=== PATIENT | female | born 1935 | race Caucasian/White ===

== ENCOUNTER 2017-07-23 14:38 | Observation (INO) ==
[2017-07-23 15:15] LABS: Basophils % 0.5 % (0.0-0.8); Eosinophils # 0.1 10*3/uL (0.0-0.87); Eosinophils % 1.1 % (0.00-10.9); Hematocrit 38.6 VOL% (35.7-47.0); Hemoglobin 14.2 GM/DL (12.0-16.0); Immature Granulocytes % 0.5 %; Immature Granulocytes Absolute 0.04 #; Lymphocytes # 1.7 10*3/uL (1.4-4.0); Lymphocytes % 22.4 % (21.3-54.2); Mean Corpuscular HGB Conc 36.8 GM/DL (32-36); Mean Corpuscular Hemoglobin 34 PG (27-34); Mean Corpuscular Volume 91.9 FL (87-102); Mean Platelet Volume 9.1 FL (9.6-12.0); Monocytes # 0.8 10*3/uL (0.11-0.8); Monocytes % 10.2 % (1.7-12.7); Neutrophils % 65.3 % (38.7-73.9); Platelet Count 200 T/CUMM (130-400); Red Cell Distribution Width 11.6 % (9.3-17.3); White Blood Count 7.6 T/CUMM (4-12)
[2017-07-23 15:35] LABS: Alanine Aminotransferase 30 U/L (13-56); Albumin 4.3 G/DL (3.4-5.0); Alkaline Phosphatase 58 U/L (45-117); Aspartate Amino Transferase 35 U/L (0-37); Blood Urea Nitrogen 14 MG/DL (7-18); Calcium 9.5 MG/DL (8.5-10.1); Glucose 101 MG/DL (74-106); Magnesium 1.8 MG/DL (1.8-2.4); Osmolality,Calculated 253.4 MOS/KG (273-304); Potassium 3.3 MMOL/L (3.5-5.1); Sodium 126 MMOL/L (136-145); Total Protein 7.7 G/DL (6.4-8.3); Troponin I Only < 0.015 NG/ML (0.00-0.045)
[2017-07-23] MEDS ORDERED: SODIUM CHLORIDE 0.9% 500 ML IV STA (15:40)
[2017-07-23] MEDS ORDERED: LACTULOSE 20 GM/30 ML UDCUP PO PRN (16:56)
[2017-07-23] MEDS ORDERED: ONDANSETRON 4 MG/2 ML VIAL IV PRN (16:56)
[2017-07-23] MEDS ORDERED: DOCUSATE SODIUM 100 MG CAPSULE PO PRN (16:56)
[2017-07-23] MEDS ORDERED: SODIUM CHLORIDE 0.9% 1,000 ML IV SCH (17:00)
[2017-07-23] MEDS ORDERED: POTASSIUM CHLORIDE 20 MEQ TABLET PO PRN (17:06)
[2017-07-23] MEDS ORDERED: ACETAMINOPHEN 325 MG TABLET PO PRN (17:26)
[2017-07-23 17:57] LABS: Magnesium 1.7 MG/DL (1.8-2.4); Thyroid Stimulating Hormone 11.1 uIU/ml (0.358-3.74)
[2017-07-23] MEDS ORDERED: MAGNESIUM SULF RIDER 4 GM in PREMIX 1 EACH IV PRN (18:27)
[2017-07-23] MEDS ORDERED: MAGNESIUM SULF RIDER 2 GM in PREMIX 1 EACH IV PRN (18:27)
[2017-07-23] MEDS: POTASSIUM CHLORIDE INJ 40 MEQ in SODIUM CHLORIDE 0.9% 1,000 ML IV SCH (18:45)
[2017-07-23 19:10] LABS: Thyroid Stimulating Hormone 6.09 uIU/ml (0.358-3.74)
[2017-07-23] MEDS: PANTOPRAZOLE 40 MG TABLET PO SCH (20:31)
[2017-07-23] MEDS ORDERED: SIMVASTATIN 20 MG TABLET PO SCH (21:00)
[2017-07-23 23:48] LABS: Apearance,Urine Slightly Hazy (Clear); Bacteria,Urine Occasional /HPF (Few); Bilirubin,Urine Negative (Negative); Blood, Urine Negative (Negative); Glucose,Urine (UA) Negative (Negative); Hyaline Casts,Urine 11 /LPF (0-3); Ketones,Urine 5 mg/dL (Negative); Mucus,Urine Occasional /LPF (Occasional); Nitrite,Urine Negative (Negative); Protein,Urine 30 MG/DL; RBC,Urine 1 /HPF (0-4); Renal Epithelial Cells,Urine Occasional /HPF (<1); Squamous Epithelial Cell,Urine Occasional /HPF (0-10); Urine Color Yellow (Yellow); Urine Specific Gravity 1.015 (1.001-1.035); Urine Urobilinogen < 2.0 EU/DL (0.2-1.0); WBC,Urine 2 /HPF (0-6)
[2017-07-24 06:00] LABS: Basophils % 0.5 % (0.0-0.8); Eosinophils # 0.1 10*3/uL (0.0-0.87); Eosinophils % 2.2 % (0.00-10.9); Hematocrit 36.1 VOL% (35.7-47.0); Hemoglobin 13.1 GM/DL (12.0-16.0); Immature Granulocytes % 0.3 %; Immature Granulocytes Absolute 0.02 #; Lymphocytes # 1.9 10*3/uL (1.4-4.0); Mean Corpuscular HGB Conc 36.3 GM/DL (32-36); Mean Corpuscular Hemoglobin 34 PG (27-34); Mean Platelet Volume 9.1 FL (9.6-12.0); Monocytes # 0.7 10*3/uL (0.11-0.8); Monocytes % 11.8 % (1.7-12.7); Neutrophils # 3.3 10*3/uL (1.4-7.4); Neutrophils % 54.2 % (38.7-73.9); Platelet Count 170 T/CUMM (130-400); Red Blood Count 3.88 MC/CUMM (3.8-5.5); Red Cell Distribution Width 11.6 % (9.3-17.3)
[2017-07-24 06:50] LABS: Osmolality,Calculated 263.5 MOS/KG (273-304); Potassium 3.9 MMOL/L (3.5-5.1); Risk Ratio 2.77; VLDL CHOLESTEROL 12.4 MG/DL
[2017-07-24 08:10] VITALS: BP 138/79
[2017-07-24] MEDS ORDERED: LOSARTAN/HCTZ 50-12.5 MG TABLET PO SCH (09:00)
[2017-07-24] MEDS ORDERED: ASPIRIN EC 325 MG TABLET PO SCH (09:00)
[2017-07-24] MEDS ORDERED: PANTOPRAZOLE 40 MG TABLET PO SCH (09:00)
[2017-07-24] MEDS: PANTOPRAZOLE 40 MG TABLET PO SCH (09:29)
[2017-07-24] MEDS: POTASSIUM CHLORIDE INJ 40 MEQ in SODIUM CHLORIDE 0.9% 1,000 ML IV SCH (10:00)
[2017-07-24] MEDS ORDERED: SODIUM CHLOR 0.9% KCL 40 MEQ 40 MEQ/1,000 ML BAG IV SCH (15:10)
== END 2017-07-24 12:45 | disposition home or self-care (01) ==
LOC: EDBD → EDUNIT# → N.EDINP 14:38 → N.ED 14:38 → N.EDINP 16:57 → N.2E 17:22
PROVIDERS: ADMIT Internal Medicine; ATTEND Internal Medicine

== ENCOUNTER 2017-08-06 05:44 | Inpatient (IN) ==
[2017-08-06] MEDS ORDERED: diphenhydrAMINE CAP 25 MG CAPSULE ONE (09:21)
[2017-08-06] MEDS ORDERED: DIAZEPAM 5 MG TABLET ONE (09:21)
[2017-08-06] MEDS ORDERED: DIAZEPAM 5 MG TABLET PO ONE (09:24)
[2017-08-06] MEDS ORDERED: MAGNESIUM SULF RIDER 2 GM in PREMIX 1 EACH IV PRN (09:24)
[2017-08-06] MEDS ORDERED: POTASSIUM CHLORIDE RIDER 10 MEQ in PREMIX 1 EACH IV PRN (09:24)
[2017-08-06] MEDS ORDERED: diphenhydrAMINE CAP 25 MG CAPSULE PO ONE (09:24)
[2017-08-06] MEDS ORDERED: SODIUM CHLORIDE 0.45% 1,000 ML IV SCH (09:30)
[2017-08-06] MEDS ORDERED: LIDOCAINE 1% 20 ML VIAL ONE (10:00)
[2017-08-06] MEDS ORDERED: HEPARIN/NACL 0.9% 2 UNITS/ML 2,000 ML IV ONE (10:01)
[2017-08-06] MEDS ORDERED: MIDAZOLAM 2 MG/2 ML VIAL ONE (10:24)
[2017-08-06] MEDS ORDERED: fentaNYL 100 MCG/2 ML VIAL ONE (10:24)
[2017-08-06] MEDS ORDERED: ZALEPLON 5 MG CAPSULE PO PRN (11:01)
[2017-08-06] MEDS ORDERED: ONDANSETRON 4 MG/2 ML VIAL IV PRN (11:01)
[2017-08-06] MEDS ORDERED: MORPHINE 2 MG/1 ML SYRINGE IV PRN (11:01)
[2017-08-06] MEDS ORDERED: NITROGLYCERIN SL 0.4 MG TABLET SL PRN (11:01)
[2017-08-06] MEDS ORDERED: guaiFENesin/DM ER 600-30 MG TABLET PO PRN (18:31)
[2017-08-06] MEDS ORDERED: BISACODYL 5 MG TABLET PO PRN (18:31)
[2017-08-06] MEDS: ATORVASTATIN 40 MG TABLET PO SCH (21:51)
[2017-08-06] MEDS: METOPROLOL TARTRATE 25 MG TABLET PO SCH (21:51)
[2017-08-07 06:16] LABS: Basophils % 0.6 % (0.0-0.8); Eosinophils # 0.2 10*3/uL (0.0-0.87); Eosinophils % 4.3 % (0.00-10.9); Immature Granulocytes % 0.4 %; Immature Granulocytes Absolute 0.02 #; Lymphocytes # 1.2 10*3/uL (1.4-4.0); Lymphocytes % 22.8 % (21.3-54.2); Mean Corpuscular HGB Conc 35.1 GM/DL (32-36); Mean Corpuscular Hemoglobin 34 PG (27-34); Mean Corpuscular Volume 97.6 FL (87-102); Mean Platelet Volume 9.3 FL (9.6-12.0); Monocytes # 0.6 10*3/uL (0.11-0.8); Monocytes % 10.8 % (1.7-12.7); Neutrophils # 3.2 10*3/uL (1.4-7.4); Neutrophils % 61.1 % (38.7-73.9); Platelet Count 170 T/CUMM (130-400); Red Blood Count 3.79 MC/CUMM (3.8-5.5); Red Cell Distribution Width 12.7 % (9.3-17.3); White Blood Count 5.3 T/CUMM (4-12)
[2017-08-07] MEDS: LEVOTHYROXINE 25 MCG TABLET PO SCH (06:28)
[2017-08-07] MEDS ORDERED: DEXTROSE 50% 25 GM/50 ML VIAL IV PRN (06:29)
[2017-08-07] MEDS ORDERED: GLUCAGON 1 MG VIAL IM PRN (06:29)
[2017-08-07] MEDS ORDERED: SODIUM CHLORIDE 0.9% 1,000 ML IV SCH (06:30)
[2017-08-07 06:41] LABS: Calcium 9.1 MG/DL (8.5-10.1); Osmolality,Calculated 267.2 MOS/KG (273-304); Risk Ratio 2.85; VLDL CHOLESTEROL 22.2 MG/DL
[2017-08-07 08:10] LABS: Allen Test Positive; Pt O2 Delivery Device Room Air
[2017-08-07 08:11] LABS: ABG HCO3 25.3 MMOL/L (20-26); ABG Oxygen Saturation 97.7 % (95-100); ABG PCO2 36.4 MM HG (35-48); ABG PO2 92.6 MM HG (80-95); ABG TCO2 21.5 MMOL/L (23-27)
[2017-08-07 08:47] LABS: Albumin 3.6 G/DL (3.4-5.0); Bilirubin,Total 0.8 MG/DL (0.2-1.0); Calcium 9.1 MG/DL (8.5-10.1); Osmolality,Calculated 265.4 MOS/KG (273-304); Total Protein 6.4 G/DL (6.4-8.3)
[2017-08-07] MEDS: ASPIRIN EC 81 MG TABLET PO SCH (09:38)
[2017-08-07] MEDS: METOPROLOL TARTRATE 25 MG TABLET PO SCH ×2 (09:38→21:20)
[2017-08-07] MEDS: PANTOPRAZOLE 20 MG TABLET PO SCH (09:38)
[2017-08-07] MEDS ORDERED: hydrALAZINE 20 MG/1 ML VIAL IV PRN (17:46)
[2017-08-07] MEDS: CHLORHEXIDINE 0.12% ORAL RINSE 60 ML BOTTLE SWISH/SPIT SCH ×2 (19:24→21:22)
[2017-08-07] MEDS: LOSARTAN 25 MG TABLET PO SCH (19:24)
[2017-08-07] MEDS ORDERED: CLORAZEPATE 3.75 MG TABLET PO PRN (20:35)
[2017-08-07] MEDS: ATORVASTATIN 40 MG TABLET PO SCH (21:20)
[2017-08-08] MEDS: LEVOTHYROXINE 25 MCG TABLET PO SCH (06:01)
[2017-08-08 06:20] LABS: Basophils # 0.1 10*3/uL (0.0-0.2); Eosinophils # 0.3 10*3/uL (0.0-0.87); Hematocrit 38.7 VOL% (35.7-47.0); Hemoglobin 13.4 GM/DL (12.0-16.0); Immature Granulocytes % 0.2 %; Immature Granulocytes Absolute 0.01 #; Lymphocytes # 1.6 10*3/uL (1.4-4.0); Lymphocytes % 27.4 % (21.3-54.2); Mean Corpuscular HGB Conc 34.6 GM/DL (32-36); Mean Corpuscular Hemoglobin 34 PG (27-34); Mean Platelet Volume 9.2 FL (9.6-12.0); Monocytes # 0.6 10*3/uL (0.11-0.8); Monocytes % 9.9 % (1.7-12.7); Neutrophils # 3.3 10*3/uL (1.4-7.4); Neutrophils % 56.5 % (38.7-73.9); Platelet Count 183 T/CUMM (130-400); Red Blood Count 3.95 MC/CUMM (3.8-5.5); Red Cell Distribution Width 12.7 % (9.3-17.3); White Blood Count 5.8 T/CUMM (4-12)
[2017-08-08 06:50] LABS: Calcium 9.1 MG/DL (8.5-10.1); Osmolality,Calculated 266.2 MOS/KG (273-304); Potassium 3.5 MMOL/L (3.5-5.1)
[2017-08-08] MEDS: CHLORHEXIDINE 0.12% ORAL RINSE 60 ML BOTTLE SWISH/SPIT SCH ×2 (09:21→22:00)
[2017-08-08] MEDS: PANTOPRAZOLE 20 MG TABLET PO SCH (09:22)
[2017-08-08] MEDS: ASPIRIN EC 81 MG TABLET PO SCH (09:22)
[2017-08-08] MEDS: LOSARTAN 25 MG TABLET PO SCH (09:23)
[2017-08-08] MEDS: METOPROLOL TARTRATE 25 MG TABLET PO SCH ×2 (09:23→22:00)
[2017-08-08] MEDS: CHLORHEXIDINE 4% SOLN 118 ML BOTTLE TOP SCH ×2 (12:51→22:00)
[2017-08-08] MEDS: ATORVASTATIN 40 MG TABLET PO SCH (22:00)
[2017-08-09] MEDS: CHLORHEXIDINE 4% SOLN 118 ML BOTTLE TOP SCH (04:30)
[2017-08-09] MEDS ORDERED: PAPAVERINE 60 MG/2 ML VIAL ONE ×2 (05:23→10:34)
[2017-08-09] MEDS ORDERED: VANCOMYCIN 1,000 MG VIAL ONE ×2 (05:24→08:51)
[2017-08-09 06:02] LABS: Basophils % 0.5 % (0.0-0.8); Eosinophils # 0.2 10*3/uL (0.0-0.87); Hematocrit 35.5 VOL% (35.7-47.0); Hemoglobin 12.5 GM/DL (12.0-16.0); Immature Granulocytes % 0.3 %; Immature Granulocytes Absolute 0.02 #; Lymphocytes # 1.4 10*3/uL (1.4-4.0); Lymphocytes % 23.4 % (21.3-54.2); Mean Corpuscular HGB Conc 35.2 GM/DL (32-36); Mean Corpuscular Hemoglobin 35 PG (27-34); Mean Corpuscular Volume 98.6 FL (87-102); Mean Platelet Volume 9.4 FL (9.6-12.0); Monocytes # 0.6 10*3/uL (0.11-0.8); Monocytes % 9.7 % (1.7-12.7); Neutrophils # 3.6 10*3/uL (1.4-7.4); Neutrophils % 62.1 % (38.7-73.9); Platelet Count 161 T/CUMM (130-400); Red Cell Distribution Width 12.7 % (9.3-17.3); White Blood Count 5.8 T/CUMM (4-12)
[2017-08-09] MEDS ORDERED: LORazepam 1 MG TABLET PO ONE (06:02)
[2017-08-09] MEDS: METOPROLOL TARTRATE 25 MG TABLET PO SCH (06:17)
[2017-08-09] MEDS: LOSARTAN 25 MG TABLET PO SCH (06:17)
[2017-08-09] MEDS ORDERED: CEFUROXIME INJ 1,500 MG in SYRINGE 1 EACH IV ONE (06:29)
[2017-08-09 06:30] LABS: Calcium 9.1 MG/DL (8.5-10.1); Magnesium 1.6 MG/DL (1.8-2.4); Osmolality,Calculated 271.8 MOS/KG (273-304); Potassium 3.7 MMOL/L (3.5-5.1)
[2017-08-09 06:33] LABS: Calcium 9.1 MG/DL (8.5-10.1); Osmolality,Calculated 273.7 MOS/KG (273-304); Potassium 3.7 MMOL/L (3.5-5.1)
[2017-08-09 08:01] LABS: ABG Base Excess -2.2 MMOL/L (-2.5-2.5); ABG HCO3 20.8 MMOL/L (20-26); ABG Oxygen Saturation 99.3 % (95-100); ABG PCO2 30.2 MM HG (35-48); ABG PH 7.456 (7.35-7.45); ABG PO2 443.2 MM HG (80-95); ABG TCO2 21.7 MMOL/L (23-27); Glucose Heart Surgery 103 MG/DL (74-106); Hemoglobin Heart Surgery 11.2 G/DL (12.0-16.0); Ionized Calcium Arterial 1.11 MMOL/L (1.21-1.46); PCO2 Patient Temp Arterial 30.2 MMHG; PH Patient Temp Arterial 7.456; PO2 Patient Temp Arterial 443.2 MM HG; Patient Temperature 37 CELCIUS; Potassium Heart/CVR 2.8 MMOL/L (3.5-5.1); Sodium Heart/CVR 135 MMOL/L (135-145)
[2017-08-09 09:22] LABS: Apearance,Urine CLEAR (Clear); Bilirubin,Urine Negative (Negative); Blood, Urine Small mg/dL (Negative); Glucose,Urine (UA) Negative (Negative); Hyaline Casts,Urine 1 /LPF (0-3); Ketones,Urine Negative (Negative); Nitrite,Urine Negative (Negative); Protein,Urine Negative; RBC,Urine 1 /HPF (0-4); Squamous Epithelial Cell,Urine Occasional /HPF (0-10); Urine Color Yellow (Yellow); Urine Specific Gravity 1.009 (1.001-1.035); Urine Urobilinogen < 2.0 EU/DL (0.2-1.0)
[2017-08-09 09:49] LABS: PCO2 Patient Temp Venous 27.3 MM HG; PH Patient Temp Venous 7.486; PO2 Patient Temp Venous 40.7 MM HG; VBG Base Excess -2.2 MEQ/L (0-4); VBG HCO3 22.5 MEQ/L (24-28); VBG Oxygen Saturation 88.3 %; VBG PCO2 33.1 MMHG (41-51); VBG PH 7.427; VBG PO2 53.1 MMHG (17-40)
[2017-08-09 09:50] LABS: Hemoglobin Heart Surgery 5.6 G/DL (12.0-16.0)
[2017-08-09 09:51] LABS: Hematocrit Heart Surgery 17.7 PERCENT (37-47)
[2017-08-09 10:17] LABS: Hematocrit Heart Surgery 22.9 PERCENT (37-47); Hemoglobin Heart Surgery 7.3 G/DL (12.0-16.0); PCO2 Patient Temp Venous 25.6 MM HG; PH Patient Temp Venous 7.526; PO2 Patient Temp Venous 32.2 MM HG; Potassium Heart/CVR 3.6 MMOL/L (3.5-5.1); VBG Base Excess -0.9 MEQ/L (0-4); VBG HCO3 23.5 MEQ/L (24-28); VBG Oxygen Saturation 81.4 %; VBG PCO2 31.1 MMHG (41-51); VBG PH 7.466; VBG PO2 42.5 MMHG (17-40)
[2017-08-09 10:49] LABS: Hematocrit Heart Surgery 23.5 PERCENT (37-47); Hemoglobin Heart Surgery 7.5 G/DL (12.0-16.0); PCO2 Patient Temp Venous 28.4 MM HG; PH Patient Temp Venous 7.485; PO2 Patient Temp Venous 35.8 MM HG; Potassium Heart/CVR 3.8 MMOL/L (3.5-5.1); VBG Base Excess -1.4 MEQ/L (0-4); VBG HCO3 22.9 MEQ/L (24-28); VBG Oxygen Saturation 72.7 %; VBG PCO2 28.4 MMHG (41-51); VBG PH 7.485; VBG PO2 35.8 MMHG (17-40)
[2017-08-09 11:17] LABS: Hematocrit Heart Surgery 28.3 PERCENT (37-47); Hemoglobin Heart Surgery 9.1 G/DL (12.0-16.0); PCO2 Patient Temp Venous 30.3 MM HG; PH Patient Temp Venous 7.447; Potassium Heart/CVR 3.6 MMOL/L (3.5-5.1); VBG Base Excess -2.4 MEQ/L (0-4); VBG HCO3 22.1 MEQ/L (24-28); VBG Oxygen Saturation 77.4 %; VBG PCO2 30.3 MMHG (41-51); VBG PH 7.447
[2017-08-09] MEDS ORDERED: PHENYLEPHRINE DRIP 40 MG/250 ML PREMIX IV ONE (11:29)
[2017-08-09] MEDS ORDERED: POTASSIUM CHLORIDE RIDER 100 ML IV ONE (11:29)
[2017-08-09] MEDS ORDERED: THROMBIN TOPICAL (RECOMBINANT) 5,000 UNIT VIAL TOP ONE (11:37)
[2017-08-09] MEDS ORDERED: ALBUMIN 25% 25 GM/100 ML VIAL IV ONE (11:39)
[2017-08-09] MEDS ORDERED: MAGNESIUM SULFATE 1 GM/2 ML VIAL ONE (11:39)
[2017-08-09] MEDS ORDERED: SODIUM BICARBONATE 50 MEQ/50 ML SYRINGE IV ONE (11:39)
[2017-08-09] MEDS ORDERED: PROTAMINE SULFATE 250 MG/25 ML VIAL IV ONE (11:39)
[2017-08-09] MEDS ORDERED: MANNITOL 12.5 GM/50 ML VIAL IV ONE (11:40)
[2017-08-09] MEDS ORDERED: FUROSEMIDE 20 MG/2 ML VIAL ONE (11:40)
[2017-08-09] MEDS ORDERED: HEPARIN 10,000 UNIT/10 ML VIAL ONE (11:40)
[2017-08-09] MEDS ORDERED: methylPREDNISolone SOD SUC 1,000 MG/8 ML VIAL ONE (11:40)
[2017-08-09] MEDS ORDERED: ALBUMIN 5% 12.5 GM/250 ML VIAL IV ONE (11:40)
[2017-08-09] MEDS ORDERED: DEXTROSE 5% KCL 20 MEQ 20 MEQ/1,000 ML BAG IV ONE (11:41)
[2017-08-09 11:47] LABS: ABG Base Excess -3.6 MMOL/L (-2.5-2.5); ABG HCO3 21.4 MMOL/L (20-26); ABG PCO2 25.1 MM HG (35-48); ABG PH 7.482 (7.35-7.45); ABG TCO2 17.2 MMOL/L (23-27); Glucose Heart Surgery 198 MG/DL (74-106); Hematocrit Heart Surgery 28.9 PERCENT (37-47); Hemoglobin Heart Surgery 9.3 G/DL (12.0-16.0); Ionized Calcium Arterial 1.35 MMOL/L (1.21-1.46); PCO2 Patient Temp Arterial 25.1 MMHG; PH Patient Temp Arterial 7.482; Patient Temperature 37 CELCIUS; Sodium Heart/CVR 134 MMOL/L (135-145)
[2017-08-09] MEDS ORDERED: NITROGLYCERIN DRIP 50 MG/250 ML BOTTLE IV ONE ×2 (12:16→13:23)
[2017-08-09] MEDS ORDERED: PROTAMINE SULFATE 50 MG/5 ML VIAL IV ONE (12:36)
[2017-08-09] MEDS ORDERED: VECURONIUM 10 MG VIAL IV PRN ×2 (13:08)
[2017-08-09] MEDS ORDERED: ALBUMIN 5% 12.5 GM in PREMIX 1 EACH IV PRN (13:08)
[2017-08-09] MEDS ORDERED: LACTATED RINGERS 250 ML IV PRN (13:08)
[2017-08-09] MEDS ORDERED: PHENYLEPHRINE DRIP 40 MG/250 ML PREMIX IV PRN (13:08)
[2017-08-09] MEDS ORDERED: ACETAMINOPHEN 650 MG SUPP RECTAL PRN (13:08)
[2017-08-09] MEDS ORDERED: INSULIN REGULAR 100 UNIT/ML IV PRN (13:08)
[2017-08-09] MEDS ORDERED: MORPHINE 10 MG/1 ML VIAL IV PRN (13:08)
[2017-08-09] MEDS ORDERED: MAGNESIUM SULF RIDER 2 GM in PREMIX 1 EACH IV PRN (13:08)
[2017-08-09] MEDS ORDERED: INSULIN REGULAR 100 UNIT/ML IV ONE (13:08)
[2017-08-09] MEDS ORDERED: CALCIUM CHLORIDE 1,000 MG/10 ML SYRINGE IV PRN (13:08)
[2017-08-09] MEDS ORDERED: NITROPRUSSIDE 100 MG in DEXTROSE 5% 250 ML IV PRN (13:08)
[2017-08-09] MEDS ORDERED: MAGNESIUM SULF RIDER 4 GM in PREMIX 1 EACH IV PRN (13:08)
[2017-08-09] MEDS ORDERED: POTASSIUM CHLORIDE RIDER 10 MEQ in PREMIX 1 EACH IV PRN (13:08)
[2017-08-09] MEDS ORDERED: INSULIN REGULAR DRIP 100 ML IV SCH (13:08)
[2017-08-09] MEDS ORDERED: DEXTROSE 50% 25 GM/50 ML VIAL IV PRN ×2 (13:08)
[2017-08-09 13:18] LABS: ABG Base Excess -3.6 MMOL/L (-2.5-2.5); ABG HCO3 21.5 MMOL/L (20-26); ABG Oxygen Saturation 99.8 % (95-100); ABG PCO2 37.9 MM HG (35-48); ABG PH 7.361 (7.35-7.45); ABG TCO2 19.4 MMOL/L (23-27); Glucose Heart Surgery 151 MG/DL (74-106); Hematocrit Heart Surgery 32.5 PERCENT (37-47); Hemoglobin Heart Surgery 10.5 G/DL (12.0-16.0); Potassium Heart/CVR 3.2 MMOL/L (3.5-5.1)
[2017-08-09] MEDS ORDERED: SUFentanil 50 MCG/ML AMP ONE (13:21)
[2017-08-09] MEDS ORDERED: EPINEPHrine 1 MG/10 ML SYRINGE ONE (13:21)
[2017-08-09] MEDS ORDERED: SEVOFLURANE 1 UNIT/15 MINUTE INH ONE (13:21)
[2017-08-09] MEDS ORDERED: MINERAL OIL/PETROLATUM OPH OINT 3.5 GM TUBE ONE (13:22)
[2017-08-09] MEDS ORDERED: ePHEDrine 50 MG/ML AMP ONE (13:22)
[2017-08-09] MEDS ORDERED: SUFentanil 250 MCG/5 ML AMP ONE (13:22)
[2017-08-09] MEDS ORDERED: ETOMIDATE 40 MG/20 ML VIAL IV ONE (13:23)
[2017-08-09] MEDS ORDERED: PHENYLEPHRINE 50 MG/5 ML VIAL ONE (13:23)
[2017-08-09] MEDS ORDERED: AMINOCAPROIC ACID 5,000 MG/20 ML VIAL IV ONE (13:23)
[2017-08-09] MEDS ORDERED: SODIUM CHLORIDE 0.9% 250 ML IV ONE (13:24)
[2017-08-09] MEDS ORDERED: SODIUM CHLORIDE 0.9% 1,000 ML IV ONE (13:24)
[2017-08-09] MEDS: SODIUM CHLORIDE 0.45% 1,000 ML IV SCH ×2 (13:25)
[2017-08-09] MEDS ORDERED: CALCIUM CHLORIDE 1,000 MG/10 ML VIAL IV ONE (13:29)
[2017-08-09 13:39] LABS: CKMB % 10.1 %
[2017-08-09 13:42] LABS: Troponin I Only 7.95 NG/ML (0.00-0.045)
[2017-08-09 13:50] LABS: Albumin 3.1 G/DL (3.4-5.0); Bilirubin,Total 0.8 MG/DL (0.2-1.0); Calcium 8.6 MG/DL (8.5-10.1); Magnesium 1.9 MG/DL (1.8-2.4); Osmolality,Calculated 279.4 MOS/KG (273-304); Potassium 3.2 MMOL/L (3.5-5.1)
[2017-08-09] MEDS: NITROGLYCERIN DRIP 50 MG/250 ML BOTTLE IV SCH (13:50)
[2017-08-09] MEDS: LACTATED RINGERS 1,000 ML IV PRN ×3 (13:50→17:01)
[2017-08-09 13:51] LABS: Basophils % 0.3 % (0.0-0.8); Eosinophils # 0.1 10*3/uL (0.0-0.87); Eosinophils % 0.9 % (0.00-10.9); Hemoglobin 10.6 GM/DL (12.0-16.0); Immature Granulocytes % 0.9 %; Immature Granulocytes Absolute 0.07 #; Lymphocytes # 1.1 10*3/uL (1.4-4.0); Lymphocytes % 14.4 % (21.3-54.2); Mean Corpuscular HGB Conc 34.2 GM/DL (32-36); Mean Corpuscular Hemoglobin 33 PG (27-34); Mean Corpuscular Volume 96.6 FL (87-102); Mean Platelet Volume 9.7 FL (9.6-12.0); Monocytes # 0.5 10*3/uL (0.11-0.8); Monocytes % 6.3 % (1.7-12.7); Neutrophils # 5.8 10*3/uL (1.4-7.4); Neutrophils % 77.2 % (38.7-73.9); Platelet Count 90 T/CUMM (130-400); Red Blood Count 3.21 MC/CUMM (3.8-5.5); Red Cell Distribution Width 14.4 % (9.3-17.3); White Blood Count 7.6 T/CUMM (4-12)
[2017-08-09] MEDS: POTASSIUM CHLORIDE RIDER 20 MEQ in PREMIX 1 EACH IV PRN ×4 (13:51→20:58)
[2017-08-09 14:00] LABS: INR 1.5
[2017-08-09 15:06] LABS: ABG Base Excess -0.7 MMOL/L (-2.5-2.5); ABG HCO3 23.3 MMOL/L (20-26); ABG Oxygen Saturation 98.5 % (95-100); ABG PH 7.429 (7.35-7.45); ABG PO2 150.9 MM HG (80-95); ABG TCO2 24.4 MMOL/L (23-27); Glucose Heart Surgery 156 MG/DL (74-106); Hemoglobin Heart Surgery 11.6 G/DL (12.0-16.0); Potassium Heart/CVR 3.4 MMOL/L (3.5-5.1)
[2017-08-09] MEDS: KETOROLAC 15 MG/1 ML VIAL IV SCH ×2 (15:20→19:27)
[2017-08-09] MEDS ORDERED: NITROPRUSSIDE 50 MG/2 ML VIAL ONE (16:25)
[2017-08-09 17:23] LABS: ABG Base Excess -1.7 MMOL/L (-2.5-2.5); ABG Oxygen Saturation 99.1 % (95-100); ABG PCO2 36.9 MM HG (35-48); ABG PH 7.397 (7.35-7.45); ABG TCO2 20.6 MMOL/L (23-27); Glucose Heart Surgery 182 MG/DL (74-106); Hematocrit Heart Surgery 31.7 PERCENT (37-47); Hemoglobin Heart Surgery 10.3 G/DL (12.0-16.0); Potassium Heart/CVR 4.3 MMOL/L (3.5-5.1)
[2017-08-09] MEDS: MORPHINE 2 MG/1 ML SYRINGE IV PRN (18:44)
[2017-08-09 19:30] LABS: ABG HCO3 24.4 MMOL/L (20-26); ABG Oxygen Saturation 97.4 % (95-100); ABG PCO2 37.1 MM HG (35-48); ABG PH 7.421 (7.35-7.45); ABG PO2 88.3 MM HG (80-95); ABG TCO2 21.8 MMOL/L (23-27); Glucose Heart Surgery 188 MG/DL (74-106); Hematocrit Heart Surgery 32.8 PERCENT (37-47); Hemoglobin Heart Surgery 10.6 G/DL (12.0-16.0); Potassium Heart/CVR 3.6 MMOL/L (3.5-5.1)
[2017-08-09 19:51] LABS: CKMB % 9.7 %
[2017-08-09 19:52] LABS: Troponin I Only 4.98 NG/ML (0.00-0.045)
[2017-08-09] MEDS: CEFUROXIME INJ 1,500 MG in SYRINGE 1 EACH IV SCH (20:29)
[2017-08-09] MEDS: CHLORHEXIDINE 0.12% ORAL RINSE 60 ML BOTTLE SWISH/SPIT SCH (21:03)
[2017-08-09] MEDS: MIDAZOLAM 2 MG/2 ML VIAL IV PRN (23:59)
[2017-08-10 00:56] LABS: ABG Base Excess -1.3 MMOL/L (-2.5-2.5); ABG HCO3 21.9 MMOL/L (20-26); ABG Oxygen Saturation 96.7 % (95-100); ABG PCO2 31.3 MM HG (35-48); ABG PH 7.462 (7.35-7.45); ABG PO2 93.6 MM HG (80-95); ABG TCO2 22.8 MMOL/L (23-27); Glucose Heart Surgery 107 MG/DL (74-106); Hemoglobin Heart Surgery 10.2 G/DL (12.0-16.0); Potassium Heart/CVR 3.4 MMOL/L (3.5-5.1)
[2017-08-10] MEDS: POTASSIUM CHLORIDE RIDER 20 MEQ in PREMIX 1 EACH IV PRN ×5 (01:02→19:35)
[2017-08-10] MEDS: FUROSEMIDE 40 MG/4 ML VIAL IV PRN ×2 (01:38→15:01)
[2017-08-10] MEDS: MIDAZOLAM 2 MG/2 ML VIAL IV PRN ×2 (02:12→05:06)
[2017-08-10] MEDS: KETOROLAC 15 MG/1 ML VIAL IV SCH ×4 (02:16→22:23)
[2017-08-10] MEDS: MIDAZOLAM 10 MG/2 ML VIAL IV PRN ×2 (03:29→06:04)
[2017-08-10 03:58] LABS: ABG HCO3 22.2 MMOL/L (20-26); ABG Oxygen Saturation 96.6 % (95-100); ABG PCO2 25.1 MM HG (35-48); ABG PH 7.564 (7.35-7.45); ABG PO2 80.5 MM HG (80-95); ABG TCO2 22.9 MMOL/L (23-27); Glucose Heart Surgery 125 MG/DL (74-106); Hemoglobin Heart Surgery 10.9 G/DL (12.0-16.0); Potassium Heart/CVR 4.4 MMOL/L (3.5-5.1)
[2017-08-10 04:03] LABS: Hematocrit 28.8 VOL% (35.7-47.0); Hemoglobin 10.2 GM/DL (12.0-16.0); Immature Granulocytes % 0.5 %; Immature Granulocytes Absolute 0.04 #; Lymphocytes # 0.5 10*3/uL (1.4-4.0); Lymphocytes % 5.7 % (21.3-54.2); Mean Corpuscular HGB Conc 35.4 GM/DL (32-36); Mean Corpuscular Hemoglobin 33 PG (27-34); Mean Corpuscular Volume 94.1 FL (87-102); Mean Platelet Volume 10.2 FL (9.6-12.0); Monocytes # 0.4 10*3/uL (0.11-0.8); Monocytes % 4.9 % (1.7-12.7); Neutrophils % 88.9 % (38.7-73.9); Platelet Count 103 T/CUMM (130-400); Red Blood Count 3.06 MC/CUMM (3.8-5.5); Red Cell Distribution Width 14.6 % (9.3-17.3); White Blood Count 7.9 T/CUMM (4-12)
[2017-08-10 04:32] LABS: Albumin 3.4 G/DL (3.4-5.0); Bilirubin,Direct 0.19 MG/DL (0.0-0.20); Bilirubin,Total 0.6 MG/DL (0.2-1.0); Calcium 8.6 MG/DL (8.5-10.1); Magnesium 1.4 MG/DL (1.8-2.4); Osmolality,Calculated 278.4 MOS/KG (273-304); Potassium 4.4 MMOL/L (3.5-5.1); Total Protein 5.4 G/DL (6.4-8.3)
[2017-08-10 05:11] LABS: ABG Base Excess 0.8 MMOL/L (-2.5-2.5); ABG HCO3 25.1 MMOL/L (20-26); ABG Oxygen Saturation 98.1 % (95-100); ABG PCO2 31.4 MM HG (35-48); ABG PH 7.484 (7.35-7.45); ABG PO2 92.1 MM HG (80-95); ABG TCO2 21.2 MMOL/L (23-27); Glucose Heart Surgery 121 MG/DL (74-106); Hematocrit Heart Surgery 32.6 PERCENT (37-47); Hemoglobin Heart Surgery 10.6 G/DL (12.0-16.0)
[2017-08-10 05:43] LABS: ABG HCO3 25.3 MMOL/L (20-26); ABG PO2 89.1 MM HG (80-95); ABG TCO2 18.7 MMOL/L (23-27); Glucose Heart Surgery 115 MG/DL (74-106); Hematocrit Heart Surgery 31.1 PERCENT (37-47); Hemoglobin Heart Surgery 10.1 G/DL (12.0-16.0); Potassium Heart/CVR 3.9 MMOL/L (3.5-5.1)
[2017-08-10 05:55] LABS: ABG PH 7.634 (7.35-7.45)
[2017-08-10 05:56] LABS: ABG PCO2 19.5 MM HG (35-48)
[2017-08-10 06:14] LABS: CKMB % 12.9 %
[2017-08-10 06:18] LABS: Troponin I Only 3.9 NG/ML (0.00-0.045)
[2017-08-10 06:49] LABS: ABG HCO3 25.3 MMOL/L (20-26); ABG Oxygen Saturation 98.4 % (95-100); ABG PCO2 27.8 MM HG (35-48); ABG PH 7.525 (7.35-7.45); ABG PO2 89.6 MM HG (80-95); ABG TCO2 20.8 MMOL/L (23-27); Glucose Heart Surgery 117 MG/DL (74-106); Hematocrit Heart Surgery 30.7 PERCENT (37-47); Hemoglobin Heart Surgery 9.9 G/DL (12.0-16.0); Potassium Heart/CVR 3.5 MMOL/L (3.5-5.1)
[2017-08-10] MEDS: DEXMEDETOMIDINE 200 MCG in SODIUM CHLORIDE 0.9% 48 ML IV SCH (07:00)
[2017-08-10 08:47] LABS: ABG Base Excess 0.3 MMOL/L (-2.5-2.5); ABG HCO3 24.7 MMOL/L (20-26); ABG Oxygen Saturation 98.9 % (95-100); ABG PCO2 38.3 MM HG (35-48); ABG PH 7.416 (7.35-7.45); ABG TCO2 22.2 MMOL/L (23-27); Glucose Heart Surgery 116 MG/DL (74-106); Hematocrit Heart Surgery 32.3 PERCENT (37-47); Hemoglobin Heart Surgery 10.5 G/DL (12.0-16.0); Potassium Heart/CVR 5.1 MMOL/L (3.5-5.1)
[2017-08-10] MEDS ORDERED: ZALEPLON 5 MG CAPSULE PO PRN (08:55)
[2017-08-10] MEDS ORDERED: guaiFENesin/DM ER 600-30 MG TABLET PO PRN (08:55)
[2017-08-10] MEDS: CEFUROXIME INJ 1,500 MG in SYRINGE 1 EACH IV SCH ×2 (08:57→21:46)
[2017-08-10] MEDS: ASPIRIN EC 81 MG TABLET PO SCH (10:34)
[2017-08-10] MEDS: LOSARTAN 25 MG TABLET PO SCH (10:35)
[2017-08-10] MEDS: METOPROLOL TARTRATE 25 MG TABLET PO SCH ×2 (10:35→21:38)
[2017-08-10] MEDS: PANTOPRAZOLE 20 MG TABLET PO SCH (10:35)
[2017-08-10] MEDS: CHLORHEXIDINE 0.12% ORAL RINSE 60 ML BOTTLE SWISH/SPIT SCH ×2 (10:36→21:53)
[2017-08-10] MEDS: CLORAZEPATE 3.75 MG TABLET PO PRN ×2 (11:43→17:05)
[2017-08-10] MEDS ORDERED: INSULIN REGULAR 100 UNIT/ML SUBCUT SCH (12:00)
[2017-08-10] MEDS: SODIUM CHLORIDE 0.45% 1,000 ML IV SCH ×2 (12:29→12:30)
[2017-08-10 14:52] LABS: CKMB % 10.8 %
[2017-08-10 14:53] LABS: Troponin I Only 3.76 NG/ML (0.00-0.045)
[2017-08-10] MEDS: NITROGLYCERIN DRIP 50 MG/250 ML BOTTLE IV SCH (15:10)
[2017-08-10] MEDS: INSULIN REGULAR 100 UNIT/ML SUBCUT SCH ×2 (17:13→21:30)
[2017-08-10 18:14] LABS: Potassium 4.1 MMOL/L (3.5-5.1)
[2017-08-10] MEDS: ATORVASTATIN 40 MG TABLET PO SCH (21:39)
[2017-08-10] MEDS ORDERED: KETOROLAC 15 MG/1 ML VIAL IV SCH (22:30)
[2017-08-11] MEDS: INSULIN REGULAR 100 UNIT/ML SUBCUT SCH ×3 (01:04→11:03)
[2017-08-11 05:27] LABS: Albumin 3.2 G/DL (3.4-5.0); Bilirubin,Direct 0.24 MG/DL (0.0-0.20); Bilirubin,Total 1.1 MG/DL (0.2-1.0); Calcium 8.5 MG/DL (8.5-10.1); Magnesium 2.1 MG/DL (1.8-2.4); Osmolality,Calculated 271.1 MOS/KG (273-304); Potassium 4.9 MMOL/L (3.5-5.1); Total Protein 5.7 G/DL (6.4-8.3)
[2017-08-11] MEDS: MORPHINE 2 MG/1 ML SYRINGE IV PRN (05:35)
[2017-08-11 06:02] LABS: Basophils % 0.1 % (0.0-0.8); Hematocrit 30.8 VOL% (35.7-47.0); Hemoglobin 10.4 GM/DL (12.0-16.0); Immature Granulocytes % 0.8 %; Immature Granulocytes Absolute 0.12 #; Lymphocytes # 0.5 10*3/uL (1.4-4.0); Lymphocytes % 3.5 % (21.3-54.2); Mean Corpuscular HGB Conc 33.8 GM/DL (32-36); Mean Corpuscular Hemoglobin 33 PG (27-34); Mean Corpuscular Volume 98.4 FL (87-102); Mean Platelet Volume 11.2 FL (9.6-12.0); Monocytes # 0.9 10*3/uL (0.11-0.8); Monocytes % 6.4 % (1.7-12.7); Neutrophils # 12.7 10*3/uL (1.4-7.4); Neutrophils % 89.2 % (38.7-73.9); Platelet Count 131 T/CUMM (130-400); Red Blood Count 3.13 MC/CUMM (3.8-5.5); Red Cell Distribution Width 14.9 % (9.3-17.3); White Blood Count 14.3 T/CUMM (4-12)
[2017-08-11] MEDS: DEXMEDETOMIDINE 200 MCG in SODIUM CHLORIDE 0.9% 48 ML IV SCH (06:42)
[2017-08-11] MEDS: ONDANSETRON 4 MG/2 ML VIAL IV PRN ×2 (06:46→11:02)
[2017-08-11] MEDS: LEVOTHYROXINE 25 MCG TABLET PO SCH (06:49)
[2017-08-11] MEDS ORDERED: PHENAZOPYRIDINE 95 MG TABLET PO SCH (08:00)
[2017-08-11 08:03] LABS: Band Neutrophils 5 % (0-10); Hypochromasia 1+; Lymphocytes 4 % (20-55); Microcytosis 1+; Platelet Estimate Adequate; Segmented Neutrophils 89 % (50-85); Total Cells Counted 100
[2017-08-11] MEDS: CLORAZEPATE 3.75 MG TABLET PO PRN ×2 (11:01→22:25)
[2017-08-11] MEDS: PANTOPRAZOLE 20 MG TABLET PO SCH (11:02)
[2017-08-11] MEDS: ASPIRIN EC 81 MG TABLET PO SCH (11:02)
[2017-08-11] MEDS: LOSARTAN 25 MG TABLET PO SCH (11:02)
[2017-08-11] MEDS: METOPROLOL TARTRATE 25 MG TABLET PO SCH ×2 (11:02→21:41)
[2017-08-11] MEDS: CHLORHEXIDINE 0.12% ORAL RINSE 60 ML BOTTLE SWISH/SPIT SCH ×3 (11:03→21:45)
[2017-08-11] MEDS ORDERED: MAGNESIUM SULF RIDER 4 GM in PREMIX 1 EACH IV PRN (12:11)
[2017-08-11] MEDS ORDERED: ACETAMINOPHEN 325 MG TABLET PO PRN (12:11)
[2017-08-11] MEDS ORDERED: MAGNESIUM SULF RIDER 2 GM in PREMIX 1 EACH IV PRN (12:11)
[2017-08-11] MEDS ORDERED: ONDANSETRON 4 MG/2 ML VIAL IV PRN (12:11)
[2017-08-11] MEDS ORDERED: SODIUM CHLOR 0.45% KCL 20 MEQ 20 MEQ/1,000 ML BAG IV SCH (12:11)
[2017-08-11] MEDS ORDERED: ZALEPLON 5 MG CAPSULE PO PRN (12:11)
[2017-08-11] MEDS ORDERED: POTASSIUM CHLORIDE 20 MEQ TABLET PO PRN (12:11)
[2017-08-11] MEDS ORDERED: MAGNESIUM HYDROXIDE SUSP 30 ML UDCUP PO PRN (12:11)
[2017-08-11] MEDS ORDERED: DEXTROSE 50% 25 GM/50 ML VIAL IV PRN ×2 (12:11)
[2017-08-11] MEDS ORDERED: oxyCODONE/ACETAMINOPHEN 5-325 MG TABLET PO PRN (12:11)
[2017-08-11] MEDS ORDERED: ALUMINUM/MAGNES/SIMETH MAX STR 30 ML UDCUP PO PRN (12:11)
[2017-08-11] MEDS ORDERED: KETOROLAC 15 MG/1 ML VIAL IV PRN (12:11)
[2017-08-11] MEDS ORDERED: GLUCAGON 1 MG VIAL IM PRN ×2 (12:11)
[2017-08-11] MEDS ORDERED: DOCUSATE SODIUM 100 MG CAPSULE PO SCH (12:11)
[2017-08-11] MEDS: FERROUS SULFATE 325 MG TABLET PO SCH (15:16)
[2017-08-11] MEDS: PHENAZOPYRIDINE 95 MG TABLET PO SCH ×2 (15:17→17:06)
[2017-08-11] MEDS ORDERED: HALOPERIDOL 5 MG/ML AMP IM PRN (21:23)
[2017-08-11] MEDS: ATORVASTATIN 40 MG TABLET PO SCH (21:41)
[2017-08-11] MEDS: DOCUSATE SODIUM 100 MG CAPSULE PO SCH (21:41)
[2017-08-11] MEDS ORDERED: HALOPERIDOL 5 MG/ML AMP IM ONE (22:42)
[2017-08-12 05:44] LABS: Basophils % 0.1 % (0.0-0.8); Hemoglobin 9.6 GM/DL (12.0-16.0); Immature Granulocytes Absolute 0.11 #; Lymphocytes # 0.9 10*3/uL (1.4-4.0); Lymphocytes % 7.8 % (21.3-54.2); Mean Corpuscular HGB Conc 34.3 GM/DL (32-36); Mean Corpuscular Hemoglobin 33 PG (27-34); Mean Corpuscular Volume 97.6 FL (87-102); Mean Platelet Volume 10.6 FL (9.6-12.0); Monocytes # 1.1 10*3/uL (0.11-0.8); Monocytes % 10.4 % (1.7-12.7); Neutrophils # 8.9 10*3/uL (1.4-7.4); Neutrophils % 80.7 % (38.7-73.9); Platelet Count 125 T/CUMM (130-400); Red Blood Count 2.87 MC/CUMM (3.8-5.5)
[2017-08-12] MEDS ORDERED: FUROSEMIDE 40 MG/4 ML VIAL IV ONE (06:00)
[2017-08-12] MEDS: LEVOTHYROXINE 25 MCG TABLET PO SCH (06:42)
[2017-08-12 07:06] LABS: Albumin 3.3 G/DL (3.4-5.0); Bilirubin,Direct 0.27 MG/DL (0.0-0.20); Bilirubin,Indirect 0.5 MG/DL (0.0-1.0); Bilirubin,Total 0.8 MG/DL (0.2-1.0); CKMB % 2.3 %; Calcium 8.7 MG/DL (8.5-10.1); Magnesium 1.8 MG/DL (1.8-2.4); Osmolality,Calculated 268.4 MOS/KG (273-304); Potassium 4.1 MMOL/L (3.5-5.1); Total Protein 5.6 G/DL (6.4-8.3)
[2017-08-12 07:08] LABS: Troponin I Only 2.14 NG/ML (0.00-0.045)
[2017-08-12] MEDS: PHENAZOPYRIDINE 95 MG TABLET PO SCH ×2 (08:19→18:38)
[2017-08-12] MEDS: DOCUSATE SODIUM 100 MG CAPSULE PO SCH (08:19)
[2017-08-12] MEDS: FERROUS SULFATE 325 MG TABLET PO SCH (08:19)
[2017-08-12] MEDS: LOSARTAN 25 MG TABLET PO SCH (08:22)
[2017-08-12] MEDS: METOPROLOL TARTRATE 25 MG TABLET PO SCH (08:22)
[2017-08-12] MEDS: CHLORHEXIDINE 0.12% ORAL RINSE 60 ML BOTTLE SWISH/SPIT SCH (08:22)
[2017-08-12] MEDS: ASPIRIN EC 81 MG TABLET PO SCH (08:22)
[2017-08-12] MEDS: PANTOPRAZOLE 20 MG TABLET PO SCH (08:22)
[2017-08-12] MEDS ORDERED: METOPROLOL TARTRATE 25 MG TABLET PO ONE (10:20)
[2017-08-12] MEDS: ATORVASTATIN 40 MG TABLET PO SCH ×2 (21:25→21:26)
[2017-08-13] MEDS: METOPROLOL TARTRATE 25 MG TABLET PO SCH ×2 (00:04→11:03)
[2017-08-13] MEDS: METOPROLOL TARTRATE 50 MG TABLET PO SCH ×2 (00:05→11:02)
[2017-08-13] MEDS: CHLORHEXIDINE 0.12% ORAL RINSE 60 ML BOTTLE SWISH/SPIT SCH ×2 (00:06→11:04)
[2017-08-13 04:47] LABS: Basophils % 0.1 % (0.0-0.8); Eosinophils # 0.1 10*3/uL (0.0-0.87); Eosinophils % 0.7 % (0.00-10.9); Hematocrit 31.6 VOL% (35.7-47.0); Hemoglobin 10.9 GM/DL (12.0-16.0); Immature Granulocytes % 1.2 %; Immature Granulocytes Absolute 0.12 #; Lymphocytes # 1.4 10*3/uL (1.4-4.0); Lymphocytes % 13.2 % (21.3-54.2); Mean Corpuscular HGB Conc 34.5 GM/DL (32-36); Mean Corpuscular Hemoglobin 33 PG (27-34); Mean Platelet Volume 10.5 FL (9.6-12.0); Monocytes # 1.3 10*3/uL (0.11-0.8); Neutrophils # 7.4 10*3/uL (1.4-7.4); Neutrophils % 71.8 % (38.7-73.9); Platelet Count 174 T/CUMM (130-400); Red Blood Count 3.29 MC/CUMM (3.8-5.5); Red Cell Distribution Width 13.8 % (9.3-17.3); White Blood Count 10.2 T/CUMM (4-12)
[2017-08-13 05:28] LABS: Alanine Aminotransferase 41 U/L (13-56); Albumin 3.2 G/DL (3.4-5.0); Alkaline Phosphatase 55 U/L (45-117); Aspartate Amino Transferase 46 U/L (0-37); Bilirubin,Indirect 0.7 MG/DL (0.0-1.0); Blood Urea Nitrogen 19 MG/DL (7-18); Calcium 8.4 MG/DL (8.5-10.1); Glucose 104 MG/DL (74-106); Potassium 3.7 MMOL/L (3.5-5.1); Sodium 136 MMOL/L (136-145); Total Protein 5.7 G/DL (6.4-8.3)
[2017-08-13] MEDS: LEVOTHYROXINE 25 MCG TABLET PO SCH (06:25)
[2017-08-13] MEDS ORDERED: AMIODARONE 200 MG TABLET PO SCH (11:00)
[2017-08-13] MEDS: PANTOPRAZOLE 20 MG TABLET PO SCH (11:02)
[2017-08-13] MEDS: DOCUSATE SODIUM 100 MG CAPSULE PO SCH (11:02)
[2017-08-13] MEDS: FERROUS SULFATE 325 MG TABLET PO SCH (11:02)
[2017-08-13] MEDS: LOSARTAN 25 MG TABLET PO SCH (11:02)
[2017-08-13] MEDS: ASPIRIN EC 81 MG TABLET PO SCH (11:03)
[2017-08-13] MEDS ORDERED: SODIUM CHLORIDE 0.9% 1,000 ML IV SCH (14:00)
[2017-08-13 14:01] LABS: Apearance,Urine Slightly Hazy (Clear); Bacteria,Urine Occasional /HPF (Few); Bilirubin,Urine Negative (Negative); Blood, Urine Negative (Negative); Glucose,Urine (UA) Negative (Negative); Hyaline Casts,Urine 29 /LPF (0-3); Ketones,Urine Negative (Negative); Mucus,Urine Occasional /LPF (Occasional); Nitrite,Urine Positive (Negative); Protein,Urine 30 MG/DL; RBC,Urine 7 /HPF (0-4); Squamous Epithelial Cell,Urine Occasional /HPF (0-10); Urine Color Amber (Yellow); Urine Specific Gravity 1.015 (1.001-1.035); WBC,Urine 3 /HPF (0-6)
[2017-08-13] MEDS ORDERED: AMIODARONE INJ 450 MG in DEXTROSE 5% 241 ML IV SCH (14:30)
[2017-08-13] MEDS ORDERED: METOPROLOL SUCCINATE XL 50 MG TABLET PO SCH (14:30)
[2017-08-13] MEDS: ENOXAPARIN 60 MG/0.6 ML SYRINGE SUBCUT SCH (15:31)
[2017-08-13] MEDS: SODIUM CHLORIDE 0.45% 1,000 ML IV SCH (15:41)
[2017-08-13 16:41] LABS: Basophils % 0.1 % (0.0-0.8); Eosinophils % 0.3 % (0.00-10.9); Hematocrit 30.4 VOL% (35.7-47.0); Hemoglobin 10.4 GM/DL (12.0-16.0); Immature Granulocytes % 1.3 %; Immature Granulocytes Absolute 0.14 #; Lymphocytes # 1.2 10*3/uL (1.4-4.0); Mean Corpuscular HGB Conc 34.2 GM/DL (32-36); Mean Corpuscular Hemoglobin 33 PG (27-34); Mean Corpuscular Volume 95.6 FL (87-102); Mean Platelet Volume 9.8 FL (9.6-12.0); Monocytes # 1.6 10*3/uL (0.11-0.8); Neutrophils # 8.1 10*3/uL (1.4-7.4); Neutrophils % 73.3 % (38.7-73.9); Platelet Count 189 T/CUMM (130-400); Red Blood Count 3.18 MC/CUMM (3.8-5.5); Red Cell Distribution Width 13.8 % (9.3-17.3); White Blood Count 11.1 T/CUMM (4-12)
[2017-08-13 16:49] LABS: INR 1.1; PT Patient Result 11.2 SECS; Partial Thromboplastin Time 34.7 SECS (0-40)
[2017-08-13 17:04] LABS: Bilirubin,Total 0.8 MG/DL (0.2-1.0); Calcium 8.2 MG/DL (8.5-10.1); Potassium 3.4 MMOL/L (3.5-5.1); Total Protein 5.6 G/DL (6.4-8.3)
[2017-08-13] MEDS: PHENAZOPYRIDINE 95 MG TABLET PO SCH (18:23)
[2017-08-14] MEDS: AMIODARONE INJ 450 MG in DEXTROSE 5% 241 ML IV SCH ×2 (01:37→17:29)
[2017-08-14] MEDS: ENOXAPARIN 60 MG/0.6 ML SYRINGE SUBCUT SCH ×2 (02:25→14:26)
[2017-08-14] MEDS: SODIUM CHLORIDE 0.45% 1,000 ML IV SCH ×2 (04:15→17:31)
[2017-08-14 05:14] LABS: Basophils % 0.2 % (0.0-0.8); Eosinophils # 0.1 10*3/uL (0.0-0.87); Eosinophils % 1.2 % (0.00-10.9); Hematocrit 29.6 VOL% (35.7-47.0); Hemoglobin 10.2 GM/DL (12.0-16.0); Immature Granulocytes % 1.3 %; Immature Granulocytes Absolute 0.12 #; Lymphocytes # 1.5 10*3/uL (1.4-4.0); Lymphocytes % 16.5 % (21.3-54.2); Mean Corpuscular HGB Conc 34.5 GM/DL (32-36); Mean Corpuscular Hemoglobin 33 PG (27-34); Mean Corpuscular Volume 96.1 FL (87-102); Mean Platelet Volume 9.7 FL (9.6-12.0); Monocytes # 1.3 10*3/uL (0.11-0.8); Monocytes % 14.5 % (1.7-12.7); Neutrophils % 66.3 % (38.7-73.9); Platelet Count 187 T/CUMM (130-400); Red Blood Count 3.08 MC/CUMM (3.8-5.5); Red Cell Distribution Width 13.6 % (9.3-17.3); White Blood Count 9.1 T/CUMM (4-12)
[2017-08-14 05:52] LABS: Magnesium 1.9 MG/DL (1.8-2.4); Osmolality,Calculated 269.2 MOS/KG (273-304); Potassium 3.3 MMOL/L (3.5-5.1)
[2017-08-14 05:56] LABS: Albumin 2.7 G/DL (3.4-5.0); Bilirubin,Total 1.6 MG/DL (0.2-1.0); Calcium 7.9 MG/DL (8.5-10.1); Osmolality,Calculated 268.2 MOS/KG (273-304); Potassium 3.3 MMOL/L (3.5-5.1); Total Protein 5.2 G/DL (6.4-8.3)
[2017-08-14] MEDS ORDERED: guaiFENesin/DM ER 600-30 MG TABLET PO PRN (11:19)
[2017-08-14] MEDS ORDERED: CLORAZEPATE 3.75 MG TABLET PO PRN (11:19)
[2017-08-14] MEDS ORDERED: ZALEPLON 5 MG CAPSULE PO PRN (11:19)
[2017-08-14] MEDS ORDERED: MAGNESIUM HYDROXIDE SUSP 30 ML UDCUP PO PRN (14:11)
[2017-08-14] MEDS ORDERED: METOPROLOL TARTRATE 25 MG TABLET PO SCH (21:00)
[2017-08-14] MEDS: METOPROLOL SUCCINATE XL 50 MG TABLET PO SCH (22:04)
[2017-08-14] MEDS: ATORVASTATIN 40 MG TABLET PO SCH (22:05)
[2017-08-14] MEDS: AMIODARONE 200 MG TABLET PO SCH (22:06)
[2017-08-14] MEDS: POTASSIUM CHLORIDE 20 MEQ TABLET PO PRN (22:10)
[2017-08-14] MEDS: APIXABAN 2.5 MG TABLET PO SCH (22:10)
[2017-08-15] MEDS: POTASSIUM CHLORIDE 20 MEQ TABLET PO PRN ×2 (00:18→02:49)
[2017-08-15 05:37] LABS: Basophils % 0.2 % (0.0-0.8); Eosinophils # 0.2 10*3/uL (0.0-0.87); Eosinophils % 1.5 % (0.00-10.9); Hematocrit 29.9 VOL% (35.7-47.0); Hemoglobin 10.4 GM/DL (12.0-16.0); Immature Granulocytes % 2.1 %; Immature Granulocytes Absolute 0.24 #; Lymphocytes # 1.8 10*3/uL (1.4-4.0); Lymphocytes % 15.4 % (21.3-54.2); Mean Corpuscular HGB Conc 34.8 GM/DL (32-36); Mean Corpuscular Hemoglobin 33 PG (27-34); Mean Corpuscular Volume 95.2 FL (87-102); Mean Platelet Volume 9.8 FL (9.6-12.0); Monocytes # 1.6 10*3/uL (0.11-0.8); Neutrophils # 7.6 10*3/uL (1.4-7.4); Neutrophils % 66.8 % (38.7-73.9); Platelet Count 242 T/CUMM (130-400); Red Blood Count 3.14 MC/CUMM (3.8-5.5); Red Cell Distribution Width 13.7 % (9.3-17.3); White Blood Count 11.4 T/CUMM (4-12)
[2017-08-15 06:09] LABS: Calcium 8.3 MG/DL (8.5-10.1); Magnesium 2.1 MG/DL (1.8-2.4); Osmolality,Calculated 262.7 MOS/KG (273-304); Potassium 4.6 MMOL/L (3.5-5.1)
[2017-08-15 06:17] LABS: Alanine Aminotransferase 55 U/L (13-56); Albumin 2.6 G/DL (3.4-5.0); Alkaline Phosphatase 57 U/L (45-117); Aspartate Amino Transferase 51 U/L (0-37); Bilirubin,Indirect 1.2 MG/DL (0.0-1.0); Blood Urea Nitrogen 12 MG/DL (7-18); Calcium 8.2 MG/DL (8.5-10.1); Glucose 108 MG/DL (74-106); Osmolality,Calculated 262.7 MOS/KG (273-304); Potassium 4.5 MMOL/L (3.5-5.1); Sodium 131 MMOL/L (136-145); Total Protein 5.2 G/DL (6.4-8.3)
[2017-08-15 06:18] LABS: Troponin I Only 0.675 NG/ML (0.00-0.045)
[2017-08-15] MEDS: LEVOTHYROXINE 25 MCG TABLET PO SCH (06:51)
[2017-08-15] MEDS: PANTOPRAZOLE 20 MG TABLET PO SCH (09:00)
[2017-08-15] MEDS: FERROUS SULFATE 325 MG TABLET PO SCH (09:00)
[2017-08-15] MEDS: ASPIRIN EC 81 MG TABLET PO SCH (09:00)
[2017-08-15] MEDS: LOSARTAN 25 MG TABLET PO SCH (09:00)
[2017-08-15] MEDS: APIXABAN 2.5 MG TABLET PO SCH ×2 (09:00→22:15)
[2017-08-15] MEDS: AMIODARONE 200 MG TABLET PO SCH ×2 (09:00→22:14)
[2017-08-15] MEDS: DOCUSATE SODIUM 100 MG CAPSULE PO SCH (09:00)
[2017-08-15] MEDS: METOPROLOL SUCCINATE XL 50 MG TABLET PO SCH ×2 (09:00→22:15)
[2017-08-15] MEDS: ATORVASTATIN 40 MG TABLET PO SCH (22:15)
[2017-08-16 04:46] LABS: Basophils % 0.3 % (0.0-0.8); Eosinophils # 0.3 10*3/uL (0.0-0.87); Eosinophils % 2.3 % (0.00-10.9); Hematocrit 36.8 VOL% (35.7-47.0); Immature Granulocytes Absolute 0.28 #; Lymphocytes # 2.4 10*3/uL (1.4-4.0); Lymphocytes % 17.7 % (21.3-54.2); Mean Corpuscular HGB Conc 34.2 GM/DL (32-36); Mean Corpuscular Hemoglobin 33 PG (27-34); Mean Corpuscular Volume 96.3 FL (87-102); Mean Platelet Volume 9.4 FL (9.6-12.0); Monocytes # 1.3 10*3/uL (0.11-0.8); Monocytes % 9.8 % (1.7-12.7); Neutrophils # 9.3 10*3/uL (1.4-7.4); Neutrophils % 67.9 % (38.7-73.9); Platelet Count 323 T/CUMM (130-400); Red Cell Distribution Width 13.8 % (9.3-17.3); White Blood Count 13.7 T/CUMM (4-12)
[2017-08-16 05:21] LABS: Red Blood Count 3.82 MC/CUMM (3.8-5.5)
[2017-08-16 05:22] LABS: Hemoglobin 12.6 GM/DL (12.0-16.0)
[2017-08-16 05:28] LABS: Alanine Aminotransferase 56 U/L (13-56); Albumin 3.2 G/DL (3.4-5.0); Alkaline Phosphatase 67 U/L (45-117); Aspartate Amino Transferase 43 U/L (0-37); Blood Urea Nitrogen 11 MG/DL (7-18); Calcium 9.2 MG/DL (8.5-10.1); Glucose 102 MG/DL (74-106); Magnesium 2.1 MG/DL (1.8-2.4); Osmolality,Calculated 264.4 MOS/KG (273-304); Potassium 4.1 MMOL/L (3.5-5.1); Sodium 133 MMOL/L (136-145); Total Protein 6.4 G/DL (6.4-8.3)
[2017-08-16 05:38] LABS: Troponin I Only 0.517 NG/ML (0.00-0.045)
[2017-08-16] MEDS: LEVOTHYROXINE 25 MCG TABLET PO SCH (06:03)
[2017-08-16] MEDS: LOSARTAN 25 MG TABLET PO SCH (11:02)
[2017-08-16] MEDS: METOPROLOL SUCCINATE XL 50 MG TABLET PO SCH ×2 (11:02→21:03)
[2017-08-16] MEDS: AMIODARONE 200 MG TABLET PO SCH ×2 (11:03→21:03)
[2017-08-16] MEDS: PANTOPRAZOLE 20 MG TABLET PO SCH (11:03)
[2017-08-16] MEDS: APIXABAN 2.5 MG TABLET PO SCH ×2 (11:03→21:03)
[2017-08-16] MEDS: FERROUS SULFATE 325 MG TABLET PO SCH (11:03)
[2017-08-16] MEDS: ASPIRIN EC 81 MG TABLET PO SCH (11:04)
[2017-08-16] MEDS: DOCUSATE SODIUM 100 MG CAPSULE PO SCH ×2 (11:04→11:05)
[2017-08-16] MEDS: ATORVASTATIN 40 MG TABLET PO SCH (21:03)
[2017-08-17] MEDS: LEVOTHYROXINE 25 MCG TABLET PO SCH (06:30)
[2017-08-17] MEDS: PANTOPRAZOLE 20 MG TABLET PO SCH (09:43)
[2017-08-17] MEDS: METOPROLOL SUCCINATE XL 50 MG TABLET PO SCH (09:43)
[2017-08-17] MEDS: AMIODARONE 200 MG TABLET PO SCH (09:43)
[2017-08-17] MEDS: APIXABAN 2.5 MG TABLET PO SCH (09:44)
[2017-08-17] MEDS: ASPIRIN EC 81 MG TABLET PO SCH (09:44)
[2017-08-17] MEDS: LOSARTAN 25 MG TABLET PO SCH (09:44)
[2017-08-17] MEDS: FERROUS SULFATE 325 MG TABLET PO SCH (09:45)
[2017-08-17] MEDS: DOCUSATE SODIUM 100 MG CAPSULE PO SCH (09:45)
[2017-08-17 14:21] VITALS: BP 179/74
== END 2017-08-17 10:09 | disposition home health service (06) | DRG 234 ==
LOC: N.CL 05:44 → SUPCPDRO 11:01 → N.TELES 11:01 → N.CVR 08-09 12:28 → N.ICU 08-10 10:10 → N.TELES 08-12 10:31 → N.CVR 08-13 13:36 → N.ICU 08-13 17:12 → N.TELES 08-15 15:34
PROVIDERS: ADMIT Internal Medicine Cardiovascular Disease; ATTEND Internal Medicine Cardiovascular Disease

== ENCOUNTER 2018-05-09 07:58 | Inpatient (IN) ==
[2018-05-09 10:05] LABS: Basophils % 0.2 % (0.0-0.8); Hematocrit 39.7 VOL% (35.7-47.0); Hemoglobin 13.6 GM/DL (12.0-16.0); Immature Granulocytes % 0.7 %; Immature Granulocytes Absolute 0.07 #; Lymphocytes # 0.3 10*3/uL (1.4-4.0); Mean Corpuscular HGB Conc 34.3 GM/DL (32-36); Mean Corpuscular Hemoglobin 38 PG (27-34); Mean Corpuscular Volume 109.7 FL (87-102); Mean Platelet Volume 8.9 FL (9.6-12.0); Monocytes # 0.5 10*3/uL (0.11-0.8); Neutrophils # 8.7 10*3/uL (1.4-7.4); Neutrophils % 91.1 % (38.7-73.9); Platelet Count 134 T/CUMM (130-400); Red Blood Count 3.62 MC/CUMM (3.8-5.5); White Blood Count 9.5 T/CUMM (4-12)
[2018-05-09 10:22] LABS: Apearance,Urine Slightly Hazy (Clear); Bilirubin,Urine Negative (Negative); Blood, Urine Small mg/dL (Negative); Glucose,Urine (UA) Negative (Negative); Granular Casts,Urine 2 /LPF (0-1); Hyaline Casts,Urine 4 /LPF (0-3); Ketones,Urine 5 mg/dL (Negative); Nitrite,Urine Negative (Negative); Protein,Urine 100 MG/DL; RBC,Urine 3 /HPF (0-4); Squamous Epithelial Cell,Urine Occasional /HPF (0-10); Urine Color Yellow (Yellow); Urine Specific Gravity 1.014 (1.001-1.035); Urine Urobilinogen < 2.0 EU/DL (0.2-1.0); WBC,Urine 8 /HPF (0-6)
[2018-05-09 10:30] LABS: Lactic Acid 3.1 MMOL/L (0.4-2.0)
[2018-05-09 10:43] LABS: Albumin 3.5 G/DL (3.4-5.0); Calcium 8.8 MG/DL (8.5-10.1); Osmolality,Calculated 263.5 MOS/KG (273-304); Potassium 3.5 MMOL/L (3.5-5.1); Total Protein 6.8 G/DL (6.4-8.3)
[2018-05-09 10:49] LABS: Barbiturates Screen,Urine Negative (Negative); Benzodiazepines Screen,Urine Negative (Negative); Cannabinoid Screen,Urine Negative (Negative); Opiate Screen,Urine Negative (Negative); Phencyclidine Screen,Urine Negative (Negative)
[2018-05-09 10:50] LABS: Band Neutrophils 27 % (0-10); Lymphocytes 3 % (20-55); Segmented Neutrophils 63 % (50-85); Total Cells Counted 100
[2018-05-09 10:51] LABS: Polychromasia Slight
[2018-05-09 10:52] LABS: Platelet Estimate Normal; Spherocytes Few
[2018-05-09 11:20] LABS: Sedimentation Rate-Westergren 46 MM/HR (0-30)
[2018-05-10 05:21] LABS: Basophils % 0.2 % (0.0-0.8); Hematocrit 30.3 VOL% (35.7-47.0); Hemoglobin 10.2 GM/DL (12.0-16.0); Immature Granulocytes % 2.3 %; Immature Granulocytes Absolute 0.15 #; Lymphocytes # 0.3 10*3/uL (1.4-4.0); Lymphocytes % 4.4 % (21.3-54.2); Mean Corpuscular HGB Conc 33.7 GM/DL (32-36); Mean Corpuscular Hemoglobin 38 PG (27-34); Mean Corpuscular Volume 112.2 FL (87-102); Mean Platelet Volume 8.9 FL (9.6-12.0); Monocytes # 0.5 10*3/uL (0.11-0.8); Monocytes % 7.8 % (1.7-12.7); Neutrophils # 5.6 10*3/uL (1.4-7.4); Neutrophils % 85.3 % (38.7-73.9); Platelet Count 106 T/CUMM (130-400); White Blood Count 6.6 T/CUMM (4-12)
[2018-05-10 06:03] LABS: Alanine Aminotransferase 22 U/L (13-56); Albumin 2.1 G/DL (3.4-5.0); Alkaline Phosphatase 44 U/L (45-117); Aspartate Amino Transferase 25 U/L (0-37); Bilirubin,Total < 0.39 MG/DL (0.2-1.0); Blood Urea Nitrogen 11 MG/DL (7-18); Calcium 7.3 MG/DL (8.5-10.1); Cholesterol 102 MG/DL (50-200); Glucose 198 MG/DL (74-106); HDL Cholesterol 64 MG/DL (40-60); Potassium 3.8 MMOL/L (3.5-5.1); Risk Ratio 1.59; Sodium 136 MMOL/L (136-145); Total Protein 4.9 G/DL (6.4-8.3); Triglycerides 79 MG/DL (2-150); VLDL CHOLESTEROL 15.8 MG/DL
[2018-05-10 06:05] LABS: Band Neutrophils 3 % (0-10); Lymphocytes 5 % (20-55); Macrocytosis Slight; Segmented Neutrophils 89 % (50-85); Total Cells Counted 100
[2018-05-10 06:06] LABS: Hypochromasia 1+; Platelet Estimate Decreased
[2018-05-11 11:47] LABS: Appearance,CSF LIGHT PINK; Neutrophils,CSF 52 %; Red Blood Cell,CSF 1400 C/CUMM; White Blood Cell,CSF 6 C/CUMM
[2018-05-11 11:48] LABS: Lymphocytes,CSF 44 %; Monocytes,CSF 4 %
[2018-05-11 11:51] LABS: Glucose,CSF 81 MG/DL (40-70)
[2018-05-12 04:15] LABS: Basophils % 0.5 % (0.0-0.8); Eosinophils # 0.1 10*3/uL (0.0-0.87); Eosinophils % 1.6 % (0.00-10.9); Hematocrit 30.6 VOL% (35.7-47.0); Hemoglobin 10.5 GM/DL (12.0-16.0); Immature Granulocytes % 1.2 %; Immature Granulocytes Absolute 0.05 #; Lymphocytes # 0.5 10*3/uL (1.4-4.0); Lymphocytes % 11.5 % (21.3-54.2); Mean Corpuscular HGB Conc 34.3 GM/DL (32-36); Mean Corpuscular Hemoglobin 38 PG (27-34); Mean Corpuscular Volume 110.1 FL (87-102); Mean Platelet Volume 9.4 FL (9.6-12.0); Monocytes # 0.5 10*3/uL (0.11-0.8); Neutrophils # 3.2 10*3/uL (1.4-7.4); Neutrophils % 73.2 % (38.7-73.9); Platelet Count 102 T/CUMM (130-400); Red Blood Count 2.78 MC/CUMM (3.8-5.5); Red Cell Distribution Width 13.4 % (9.3-17.3); White Blood Count 4.3 T/CUMM (4-12)
[2018-05-12 04:51] LABS: Calcium 7.8 MG/DL (8.5-10.1); Osmolality,Calculated 273.7 MOS/KG (273-304)
[2018-05-12 05:00] LABS: Hypochromasia 1+; Platelet Estimate Decreased
[2018-05-12 05:01] LABS: Macrocytosis Slight
[2018-05-12 05:14] LABS: Potassium 2.3 MMOL/L (3.5-5.1)
[2018-05-13 05:19] LABS: Basophils % 0.3 % (0.0-0.8); Eosinophils # 0.1 10*3/uL (0.0-0.87); Eosinophils % 1.7 % (0.00-10.9); Hematocrit 31.3 VOL% (35.7-47.0); Hemoglobin 10.8 GM/DL (12.0-16.0); Immature Granulocytes % 1.7 %; Lymphocytes # 0.8 10*3/uL (1.4-4.0); Lymphocytes % 13.3 % (21.3-54.2); Mean Corpuscular HGB Conc 34.5 GM/DL (32-36); Mean Corpuscular Hemoglobin 37 PG (27-34); Mean Corpuscular Volume 106.5 FL (87-102); Mean Platelet Volume 9.6 FL (9.6-12.0); Monocytes # 0.6 10*3/uL (0.11-0.8); Monocytes % 10.5 % (1.7-12.7); Neutrophils # 4.4 10*3/uL (1.4-7.4); Neutrophils % 72.5 % (38.7-73.9); Platelet Count 123 T/CUMM (130-400); Red Blood Count 2.94 MC/CUMM (3.8-5.5); Red Cell Distribution Width 13.7 % (9.3-17.3)
[2018-05-13 05:39] LABS: Calcium 8.2 MG/DL (8.5-10.1); Osmolality,Calculated 275.3 MOS/KG (273-304); Potassium 3.4 MMOL/L (3.5-5.1)
[2018-05-13 07:49] VITALS: BP 136/84
== END 2018-05-13 11:20 | disposition home health service (06) | DRG 872 ==
LOC: EDBD → EDUNIT# → N.ED 07:58 → N.EDINP 12:51 → SUATTDRO 12:51 → N.2E 14:02
PROVIDERS: ADMIT Hospitalist; ATTEND Internal Medicine

== ENCOUNTER 2020-11-15 11:33 | Observation (INO) ==
[2020-11-15 12:05] LABS: Basophils % 0.1 % (0.0-0.8); Eosinophils % 0.1 % (0.00-10.9); Hematocrit 40.5 VOL% (35.7-47.0); Hemoglobin 12.8 GM/DL (12.0-16.0); Immature Granulocytes % 0.7 %; Lymphocytes # 1.9 10*3/uL (1.4-4.0); Lymphocytes % 14.1 % (21.3-54.2); Mean Corpuscular HGB Conc 31.6 GM/DL (32-36); Mean Corpuscular Volume 114.7 FL (87-102); Mean Platelet Volume 9.5 FL (9.6-12.0); Monocytes % 8.1 % (1.7-12.7); Neutrophils % 76.9 % (38.7-73.9); Platelet Count 172 T/CUMM (130-400); Red Blood Count 3.53 MC/CUMM (3.8-5.5); Red Cell Distribution Width 13.1 % (9.3-17.3); White Blood Count 13.7 T/CUMM (4-12)
[2020-11-15] MEDS ORDERED: SODIUM CHLORIDE 0.9% 1,000 ML IV STA (12:15)
[2020-11-15 12:21] LABS: Albumin 3.2 G/DL (3.4-5.0); Bilirubin,Total 0.8 MG/DL (0.2-1.0); Calcium 8.5 MG/DL (8.5-10.1); Osmolality,Calculated 267.9 MOS/KG (273-304); Potassium 5.5 MMOL/L (3.5-5.1); Total Protein 6.6 G/DL (5.0-7.5)
[2020-11-15 12:43] LABS: Bilirubin,Urine Negative (Negative); Blood, Urine Negative (Negative); Glucose,Urine (UA) Negative (Negative); Hyaline Casts,Urine 53 /LPF (0-3); Ketones,Urine 20 mg/dL (Negative); Mucus,Urine Occasional /LPF (Occasional); Nitrite,Urine Negative (Negative); Protein,Urine Negative; RBC,Urine <1 /HPF (0-4); Squamous Epithelial Cell,Urine Occasional /HPF (0-10); Urine Appearance CLEAR (Clear); Urine Color Amber (Yellow); Urine Specific Gravity 1.019 (1.001-1.035); Urine Urobilinogen < 2.0 EU/DL (0.2-1.0); WBC,Urine 1 /HPF (0-6)
[2020-11-15] MEDS ORDERED: DOCUSATE SODIUM 100 MG CAPSULE PO PRN (15:04)
[2020-11-15] MEDS ORDERED: DEXTROSE 50% 25 GM/50 ML VIAL IV PRN (15:04)
[2020-11-15] MEDS ORDERED: ZALEPLON 5 MG CAPSULE PO PRN (15:04)
[2020-11-15] MEDS ORDERED: GLUCAGON 1 MG VIAL IM PRN (15:04)
[2020-11-15] MEDS ORDERED: ONDANSETRON 4 MG/2 ML VIAL IV PRN (15:04)
[2020-11-15] MEDS ORDERED: SODIUM CHLORIDE 0.9% 1,000 ML IV SCH (15:30)
[2020-11-15 15:38] LABS: Thyroid Stimulating Hormone 8.27 uIU/ml (0.358-3.74)
[2020-11-15] MEDS: PANTOPRAZOLE 40 MG TABLET PO SCH (15:38)
[2020-11-15 16:08] LABS: Troponin I < 0.015 NG/ML (0.00-0.045)
[2020-11-15] MEDS ORDERED: GABAPENTIN 300 MG CAPSULE PO PRN (16:59)
[2020-11-15] MEDS ORDERED: ASPIRIN EC 81 MG TABLET PO SCH (21:00)
[2020-11-15] MEDS ORDERED: [UNRECOGNIZED DRUG - MIXTURE] PO SCH (21:00)
[2020-11-15] MEDS ORDERED: MAGNESIUM CHLORIDE 64 MG TABLET PO SCH (21:00)
[2020-11-16] MEDS ORDERED: LEVOTHYROXINE 25 MCG TABLET PO SCH ×2 (06:30→09:00)
[2020-11-16 06:31] LABS: Troponin I < 0.015 NG/ML (0.00-0.045)
[2020-11-16 06:32] LABS: Albumin 2.6 G/DL (3.4-5.0); Bilirubin,Total 0.9 MG/DL (0.2-1.0); Calcium 8.3 MG/DL (8.5-10.1); Potassium 3.8 MMOL/L (3.5-5.1); Risk Ratio 2.79; Total Protein 5.4 G/DL (5.0-7.5); VLDL CHOLESTEROL 28.6 MG/DL
[2020-11-16 07:02] LABS: Basophils % 0.1 % (0.0-0.8); Eosinophils % 0.1 % (0.00-10.9); Hemoglobin 11.3 GM/DL (12.0-16.0); Immature Granulocytes % 0.4 %; Immature Granulocytes Absolute 0.03 #; Lymphocytes # 1.5 10*3/uL (1.4-4.0); Lymphocytes % 18.5 % (21.3-54.2); Mean Corpuscular HGB Conc 33.2 GM/DL (32-36); Mean Corpuscular Volume 110.7 FL (87-102); Mean Platelet Volume 9.1 FL (9.6-12.0); Monocytes % 10.8 % (1.7-12.7); Neutrophils % 70.1 % (38.7-73.9); Platelet Count 123 T/CUMM (130-400); Red Blood Count 3.07 MC/CUMM (3.8-5.5); Red Cell Distribution Width 13.2 % (9.3-17.3); White Blood Count 8.2 T/CUMM (4-12)
[2020-11-16 08:57] LABS: Hepatitis B Core IgM Quant < 0.05 Index; Hepatitis B Surface Ag Quant < 0.10 Index; Hepatitis B Surface Ag Result Non-Reactive (NonReactive); Hepatitis C Virus Ab Quant 0.08 Index; Hepatitis C Virus Ab Result Non-Reactive (NonReactive)
[2020-11-16] MEDS ORDERED: RIVAROXABAN 15 MG TABLET PO SCH (09:00)
[2020-11-16] MEDS ORDERED: carvediloL 12.5 MG TABLET PO SCH (09:00)
[2020-11-16] MEDS ORDERED: carvediloL 6.25 MG TABLET PO SCH (09:00)
[2020-11-16] MEDS: PANTOPRAZOLE 40 MG TABLET PO SCH (09:22)
[2020-11-16 11:28] VITALS: BP 119/55
== END 2020-11-16 15:22 | disposition home or self-care (01) ==
LOC: EDUNIT# → EDBD → N.ED 11:33 → N.EDINP 11:33 → N.TELEN 16:05
PROVIDERS: ADMIT Internal Medicine; ATTEND Internal Medicine

== ENCOUNTER 2021-07-09 21:13 | Observation (INO) ==
[2021-07-09] MEDS ORDERED: NALOXONE 0.4 MG/ML VIAL ONE (21:29)
[2021-07-09] MEDS ORDERED: SODIUM CHLORIDE 0.9% 500 ML IV STA (21:33)
[2021-07-09 21:59] LABS: Basophils % 0.7 % (0.0-0.8); Eosinophils # 0.2 10*3/uL (0.0-0.87); Eosinophils % 2.5 % (0.00-10.9); Immature Granulocytes % 0.3 %; Immature Granulocytes Absolute 0.02 #; Lymphocytes # 2.5 10*3/uL (1.4-4.0); Lymphocytes % 40.4 % (21.3-54.2); Mean Corpuscular HGB Conc 31.7 GM/DL (32-36); Mean Corpuscular Volume 93.6 FL (87-102); Mean Platelet Volume 9.6 FL (9.6-12.0); Monocytes % 9.7 % (1.7-12.7); Neutrophils % 46.4 % (38.7-73.9); Platelet Count 179 T/CUMM (130-400); Red Blood Count 4.38 MC/CUMM (3.8-5.5); Red Cell Distribution Width 14.5 % (9.3-17.3); White Blood Count 6.1 T/CUMM (4-12)
[2021-07-09] MEDS ORDERED: NALOXONE 0.4 MG/ML VIAL IM STA (22:02)
[2021-07-09] MEDS ORDERED: NALOXONE 0.4 MG/ML VIAL IV STA (22:05)
[2021-07-09 22:09] LABS: INR 1.1
[2021-07-09 22:18] LABS: Lactic Acid 1.9 MMOL/L (0.4-2.0)
[2021-07-09 22:19] LABS: Acetaminophen < 2.0 UG/ML (10-30); Salicylate < 2.8 MG/DL (2.8-20)
[2021-07-09 22:24] LABS: Alanine Aminotransferase 20 U/L (13-56); Albumin 3.4 G/DL (3.4-5.0); Alkaline Phosphatase 71 U/L (45-117); Aspartate Amino Transferase 24 U/L (0-37); Blood Urea Nitrogen 5 MG/DL (7-18); CKMB % 7.5 %; Calcium 9.2 MG/DL (8.5-10.1); Carbon Dioxide 30 MMOL/L (21-32); Estimated Glom Filtration Rate 54 ML/MIN; Glucose 94 MG/DL (74-106); Osmolality,Calculated 260.5 MOS/KG (273-304); Sodium 132 MMOL/L (136-145); Total Protein 7.2 G/DL (6.4-8.2)
[2021-07-09 22:56] LABS: Ammonia < 10 UMOL/L (11-32)
[2021-07-09] MEDS ORDERED: MAGNESIUM SULF RIDER 2 GM/50 ML PREMIX IV STA (23:06)
[2021-07-09 23:28] LABS: Eosinophils 4 % (0-10); Lymphocytes 48 % (20-55); Segmented Neutrophils 39 % (50-85); Total Cells Counted 100
[2021-07-09 23:38] LABS: Microcytosis Slight; Platelet Estimate Normal
[2021-07-09 23:39] LABS: Bacteria,Urine Occasional /HPF (Few); Bilirubin,Urine Negative (Negative); Blood, Urine Negative (Negative); Glucose,Urine (UA) Negative (Negative); Ketones,Urine Negative (Negative); Nitrite,Urine Negative (Negative); Protein,Urine Negative; RBC,Urine 1 /HPF (0-4); Squamous Epithelial Cell,Urine Occasional /HPF (0-10); Urine Appearance CLEAR (Clear); Urine Color Colorless (Yellow); Urine Specific Gravity 1.003 (1.001-1.035); Urine Urobilinogen < 2.0 EU/DL (0.2-1.0)
[2021-07-09 23:57] LABS: Barbiturates Screen,Urine Negative (Negative); Benzodiazepines Screen,Urine Negative (Negative); Cannabinoid Screen,Urine Negative (Negative); Opiate Screen,Urine Positive (Negative); Phencyclidine Screen,Urine Negative (Negative)
[2021-07-10] MEDS ORDERED: GLUCAGON 1 MG VIAL IM PRN (03:26)
[2021-07-10] MEDS ORDERED: DEXTROSE 50% 25 GM/50 ML VIAL IV PRN (03:26)
[2021-07-10] MEDS ORDERED: ACETAMINOPHEN 325 MG TABLET PO PRN (03:26)
[2021-07-10] MEDS ORDERED: HEPARIN 5,000 UNIT/1 ML VIAL SUBCUT SCH ×2 (03:30→17:00)
[2021-07-10 05:38] LABS: Basophils % 0.5 % (0.0-0.8); Eosinophils # 0.1 10*3/uL (0.0-0.87); Eosinophils % 1.8 % (0.00-10.9); Hematocrit 41.8 VOL% (35.7-47.0); Hemoglobin 13.3 GM/DL (12.0-16.0); Immature Granulocytes % 0.3 %; Immature Granulocytes Absolute 0.02 #; Lymphocytes % 32.9 % (21.3-54.2); Mean Corpuscular HGB Conc 31.8 GM/DL (32-36); Mean Corpuscular Volume 91.7 FL (87-102); Mean Platelet Volume 9.4 FL (9.6-12.0); Monocytes % 9.1 % (1.7-12.7); Neutrophils % 55.4 % (38.7-73.9); Platelet Count 220 T/CUMM (130-400); Red Blood Count 4.56 MC/CUMM (3.8-5.5); Red Cell Distribution Width 14.3 % (9.3-17.3)
[2021-07-10 06:11] LABS: Calcium 9.4 MG/DL (8.5-10.1); Potassium 3.6 MMOL/L (3.5-5.1); Thyroid Stimulating Hormone 3.04 uIU/ml (0.358-3.74)
[2021-07-10] MEDS ORDERED: carvediloL 6.25 MG TABLET PO SCH (09:00)
[2021-07-10] MEDS ORDERED: LEVOTHYROXINE 25 MCG TABLET PO SCH (09:00)
[2021-07-10] MEDS ORDERED: PANTOPRAZOLE 20 MG TABLET PO SCH (09:00)
[2021-07-10 16:04] VITALS: BP 131/53
[2021-07-10] MEDS ORDERED: ASPIRIN EC 81 MG TABLET PO SCH (21:00)
[2021-07-10] MEDS ORDERED: ATORVASTATIN 40 MG TABLET PO SCH (21:00)
[2021-07-11] MEDS ORDERED: MULTIVITAMIN (CENTRUM) TABLET PO SCH (09:00)
== END 2021-07-10 18:35 | disposition home or self-care (01) ==
LOC: N.ED 21:13 → N.EDINP 21:13 → SUATTDRO 07-10 03:26 → N.EDINP 07-10 05:45 → N.5E 07-10 05:58
PROVIDERS: ADMIT Internal Medicine; ATTEND Internal Medicine

== ENCOUNTER 2021-07-10 21:29 | Observation (INO) ==
[2021-07-10] MEDS ORDERED: SODIUM CHLORIDE 0.9% 500 ML IV STA (22:11)
[2021-07-10 22:41] LABS: Basophils % 0.6 % (0.0-0.8); Eosinophils # 0.2 10*3/uL (0.0-0.87); Eosinophils % 2.3 % (0.00-10.9); Hematocrit 39.9 VOL% (35.7-47.0); Hemoglobin 12.4 GM/DL (12.0-16.0); Immature Granulocytes % 0.4 %; Immature Granulocytes Absolute 0.03 #; Lymphocytes # 1.6 10*3/uL (1.4-4.0); Lymphocytes % 23.7 % (21.3-54.2); Mean Corpuscular HGB Conc 31.1 GM/DL (32-36); Mean Corpuscular Volume 94.5 FL (87-102); Mean Platelet Volume 9.7 FL (9.6-12.0); Monocytes % 9.1 % (1.7-12.7); Neutrophils % 63.9 % (38.7-73.9); Platelet Count 211 T/CUMM (130-400); Red Blood Count 4.22 MC/CUMM (3.8-5.5); Red Cell Distribution Width 14.6 % (9.3-17.3); White Blood Count 6.9 T/CUMM (4-12)
[2021-07-10 23:03] LABS: Alanine Aminotransferase 19 U/L (13-56); Albumin 3.2 G/DL (3.4-5.0); Alkaline Phosphatase 68 U/L (45-117); Aspartate Amino Transferase 22 U/L (0-37); Blood Urea Nitrogen 8 MG/DL (7-18); Carbon Dioxide 31 MMOL/L (21-32); Estimated Glom Filtration Rate 55 ML/MIN; Glucose 114 MG/DL (74-106); Osmolality,Calculated 273.7 MOS/KG (273-304); Potassium 3.2 MMOL/L (3.5-5.1); Sodium 138 MMOL/L (136-145); Total Protein 6.7 G/DL (6.4-8.2)
[2021-07-10] MEDS ORDERED: POTASSIUM CHLORIDE 20 MEQ TABLET PO STA (23:10)
[2021-07-11] MEDS ORDERED: GLUCAGON 1 MG VIAL IM PRN (00:08)
[2021-07-11] MEDS ORDERED: ONDANSETRON 4 MG/2 ML VIAL IV PRN (00:08)
[2021-07-11] MEDS ORDERED: DEXTROSE 50% 25 GM/50 ML VIAL IV PRN (00:08)
[2021-07-11] MEDS ORDERED: ACETAMINOPHEN 325 MG TABLET PO PRN (00:08)
[2021-07-11 00:35] LABS: Bilirubin,Urine Negative (Negative); Blood, Urine Negative (Negative); Glucose,Urine (UA) Negative (Negative); Hyaline Casts,Urine 1 /LPF (0-3); Ketones,Urine Negative (Negative); Nitrite,Urine Negative (Negative); Protein,Urine Negative; RBC,Urine <1 /HPF (0-4); Urine Appearance CLEAR (Clear); Urine Color Yellow (Yellow); Urine Specific Gravity 1.008 (1.001-1.035); Urine Urobilinogen < 2.0 EU/DL (0.2-1.0)
[2021-07-11] MEDS: SODIUM CHLORIDE 0.9% 1,000 ML IV SCH ×3 (00:37→20:30)
[2021-07-11 00:52] LABS: Barbiturates Screen,Urine Negative (Negative); Benzodiazepines Screen,Urine Negative (Negative); Cannabinoid Screen,Urine Negative (Negative); Opiate Screen,Urine Positive (Negative); Phencyclidine Screen,Urine Negative (Negative)
[2021-07-11] MEDS ORDERED: POTASSIUM CHLORIDE 20 MEQ TABLET PO PRN (03:42)
[2021-07-11 05:08] LABS: Basophils % 0.4 % (0.0-0.8); Eosinophils # 0.1 10*3/uL (0.0-0.87); Eosinophils % 1.3 % (0.00-10.9); Hematocrit 37.1 VOL% (35.7-47.0); Immature Granulocytes % 0.3 %; Immature Granulocytes Absolute 0.02 #; Lymphocytes # 2.3 10*3/uL (1.4-4.0); Lymphocytes % 34.9 % (21.3-54.2); Mean Corpuscular HGB Conc 32.3 GM/DL (32-36); Mean Corpuscular Volume 93.7 FL (87-102); Mean Platelet Volume 9.6 FL (9.6-12.0); Monocytes % 8.5 % (1.7-12.7); Neutrophils % 54.6 % (38.7-73.9); Platelet Count 196 T/CUMM (130-400); Red Blood Count 3.96 MC/CUMM (3.8-5.5); Red Cell Distribution Width 14.5 % (9.3-17.3); White Blood Count 6.7 T/CUMM (4-12)
[2021-07-11 05:30] LABS: Calcium 8.7 MG/DL (8.5-10.1); Osmolality,Calculated 272.7 MOS/KG (273-304); Potassium 4.1 MMOL/L (3.5-5.1)
[2021-07-11] MEDS: PANTOPRAZOLE 40 MG TABLET PO SCH (09:39)
[2021-07-11] MEDS: ENOXAPARIN 40 MG/0.4 ML SYRINGE SUBCUT SCH (23:46)
[2021-07-12 05:31] LABS: Basophils % 0.6 % (0.0-0.8); Eosinophils # 0.2 10*3/uL (0.0-0.87); Eosinophils % 2.6 % (0.00-10.9); Hematocrit 37.2 VOL% (35.7-47.0); Hemoglobin 12.2 GM/DL (12.0-16.0); Immature Granulocytes % 0.3 %; Immature Granulocytes Absolute 0.02 #; Lymphocytes # 2.7 10*3/uL (1.4-4.0); Lymphocytes % 38.3 % (21.3-54.2); Mean Corpuscular HGB Conc 32.8 GM/DL (32-36); Mean Corpuscular Volume 92.8 FL (87-102); Mean Platelet Volume 9.8 FL (9.6-12.0); Monocytes % 9.1 % (1.7-12.7); Neutrophils % 49.1 % (38.7-73.9); Platelet Count 210 T/CUMM (130-400); Red Blood Count 4.01 MC/CUMM (3.8-5.5); Red Cell Distribution Width 14.6 % (9.3-17.3)
[2021-07-12 05:49] LABS: Calcium 9.1 MG/DL (8.5-10.1); Osmolality,Calculated 273.7 MOS/KG (273-304); Potassium 3.8 MMOL/L (3.5-5.1)
[2021-07-12] MEDS: ASPIRIN EC 81 MG TABLET PO SCH (08:42)
[2021-07-12] MEDS: PANTOPRAZOLE 40 MG TABLET PO SCH (08:42)
[2021-07-12] MEDS ORDERED: MAGNESIUM SULF RIDER 2 GM/50 ML PREMIX IV ONE (09:00)
[2021-07-12] MEDS: SODIUM CHLORIDE 0.9% 1,000 ML IV SCH (18:12)
[2021-07-12] MEDS: ENOXAPARIN 40 MG/0.4 ML SYRINGE SUBCUT SCH ×2 (20:01→20:02)
[2021-07-13 05:05] LABS: Basophils # 0.1 10*3/uL (0.0-0.2); Basophils % 0.7 % (0.0-0.8); Eosinophils # 0.2 10*3/uL (0.0-0.87); Eosinophils % 2.4 % (0.00-10.9); Hematocrit 39.8 VOL% (35.7-47.0); Hemoglobin 13.1 GM/DL (12.0-16.0); Immature Granulocytes % 0.1 %; Immature Granulocytes Absolute 0.01 #; Lymphocytes # 2.7 10*3/uL (1.4-4.0); Lymphocytes % 38.6 % (21.3-54.2); Mean Corpuscular HGB Conc 32.9 GM/DL (32-36); Mean Corpuscular Volume 90.9 FL (87-102); Mean Platelet Volume 9.8 FL (9.6-12.0); Monocytes % 8.5 % (1.7-12.7); Neutrophils % 49.7 % (38.7-73.9); Platelet Count 236 T/CUMM (130-400); Red Blood Count 4.38 MC/CUMM (3.8-5.5); Red Cell Distribution Width 14.5 % (9.3-17.3)
[2021-07-13 05:20] LABS: Calcium 9.4 MG/DL (8.5-10.1); Osmolality,Calculated 268.1 MOS/KG (273-304); Potassium 3.6 MMOL/L (3.5-5.1)
[2021-07-13] MEDS: LEVOTHYROXINE 25 MCG TABLET PO SCH (06:21)
[2021-07-13] MEDS: PANTOPRAZOLE 40 MG TABLET PO SCH (10:25)
[2021-07-13] MEDS: ASPIRIN EC 81 MG TABLET PO SCH (10:25)
[2021-07-13] MEDS: SODIUM CHLORIDE 0.9% 1,000 ML IV SCH (15:08)
[2021-07-13] MEDS: carvediloL 6.25 MG TABLET PO SCH (16:45)
[2021-07-13] MEDS: ENOXAPARIN 40 MG/0.4 ML SYRINGE SUBCUT SCH (20:46)
[2021-07-13] MEDS ORDERED: ATORVASTATIN 40 MG TABLET PO SCH (21:00)
[2021-07-14 06:06] LABS: Basophils % 0.8 % (0.0-0.8); Eosinophils # 0.2 10*3/uL (0.0-0.87); Eosinophils % 4.5 % (0.00-10.9); Hematocrit 34.5 VOL% (35.7-47.0); Hemoglobin 11.5 GM/DL (12.0-16.0); Immature Granulocytes % 0.4 %; Immature Granulocytes Absolute 0.02 #; Mean Corpuscular HGB Conc 33.3 GM/DL (32-36); Mean Corpuscular Volume 91.8 FL (87-102); Mean Platelet Volume 9.5 FL (9.6-12.0); Monocytes % 12.4 % (1.7-12.7); Neutrophils % 43.9 % (38.7-73.9); Platelet Count 197 T/CUMM (130-400); Red Blood Count 3.76 MC/CUMM (3.8-5.5); Red Cell Distribution Width 14.6 % (9.3-17.3); White Blood Count 5.3 T/CUMM (4-12)
[2021-07-14 06:27] LABS: Calcium 9.1 MG/DL (8.5-10.1); Osmolality,Calculated 274.7 MOS/KG (273-304); Potassium 3.5 MMOL/L (3.5-5.1)
[2021-07-14] MEDS: LEVOTHYROXINE 25 MCG TABLET PO SCH (06:28)
[2021-07-14] MEDS ORDERED: MAGNESIUM SULF RIDER 4 GM/100 ML PREMIX IV ONE (07:22)
[2021-07-14] MEDS: ASPIRIN EC 81 MG TABLET PO SCH (08:57)
[2021-07-14] MEDS: PANTOPRAZOLE 40 MG TABLET PO SCH (08:57)
[2021-07-14] MEDS: carvediloL 6.25 MG TABLET PO SCH (08:57)
[2021-07-14 12:10] VITALS: BP 122/47
== END 2021-07-14 15:11 | disposition home or self-care (01) ==
LOC: EDUNIT# → EDBD → N.EDINP 21:29 → N.ED 21:29 → SUATTDRO 07-11 09:30 → N.5E 07-11 15:21
PROVIDERS: ADMIT Internal Medicine; ATTEND Internal Medicine

== ENCOUNTER 2021-11-22 17:25 | Observation (INO) ==
[2021-11-22] MEDS ORDERED: SODIUM CHLORIDE 0.9% 1,000 ML IV STA (18:03)
[2021-11-22 18:50] LABS: Basophils # 0.1 10*3/uL (0.0-0.2); Basophils % 0.6 % (0.0-0.8); Eosinophils # 0.1 10*3/uL (0.0-0.87); Eosinophils % 0.8 % (0.00-10.9); Hematocrit 47.8 VOL% (35.7-47.0); Hemoglobin 15.6 GM/DL (12.0-16.0); Immature Granulocytes % 0.3 %; Immature Granulocytes Absolute 0.03 #; Lymphocytes # 2.9 10*3/uL (1.4-4.0); Lymphocytes % 33.3 % (21.3-54.2); Mean Corpuscular HGB Conc 32.6 GM/DL (32-36); Mean Platelet Volume 9.9 FL (9.6-12.0); Monocytes % 7.8 % (1.7-12.7); Neutrophils % 57.2 % (38.7-73.9); Platelet Count 301 T/CUMM (130-400); Red Blood Count 5.14 MC/CUMM (3.8-5.5); White Blood Count 8.6 T/CUMM (4-12)
[2021-11-22 19:02] LABS: Bilirubin,Urine Negative (Negative); Blood, Urine Trace mg/dL (Negative); Glucose,Urine (UA) Negative (Negative); Ketones,Urine Negative (Negative); Mucus,Urine Occasional /LPF (Occasional); Nitrite,Urine Negative (Negative); Protein,Urine Trace mg/dL (Negative); Squamous Epithelial Cell,Urine Occasional /HPF (0-10); Urine Appearance Clear (Clear); Urine Color Yellow (Yellow); Urine Specific Gravity > 1.030 (1.001-1.035); Urine Urobilinogen 0.2 eU/dL (<2.0); Urine pH 5.5 (4.5-8.0)
[2021-11-22 19:06] LABS: Calcium 9.7 MG/DL (8.5-10.1); Osmolality,Calculated 283.8 MOS/KG (273-304); Potassium 4.1 MMOL/L (3.5-5.1)
[2021-11-22] MEDS ORDERED: GLUCAGON 1 MG VIAL IM PRN (20:52)
[2021-11-22] MEDS ORDERED: ACETAMINOPHEN 325 MG TABLET PO PRN (20:52)
[2021-11-22] MEDS ORDERED: ONDANSETRON 4 MG/2 ML VIAL IV PRN (20:52)
[2021-11-22] MEDS ORDERED: hydrALAZINE 20 MG/1 ML VIAL IV PRN (20:52)
[2021-11-22] MEDS ORDERED: ENOXAPARIN 40 MG/0.4 ML SYRINGE SUBCUT SCH (21:00)
[2021-11-22] MEDS ORDERED: DEXTROSE 10% 250 ML BAG IV PRN (21:00)
[2021-11-22] MEDS: SODIUM CHLORIDE 0.9% 1,000 ML IV SCH (21:28)
[2021-11-22] MEDS ORDERED: ATORVASTATIN 40 MG TABLET PO SCH (21:30)
[2021-11-23] MEDS: SODIUM CHLORIDE 0.9% 1,000 ML IV SCH (05:59)
[2021-11-23] MEDS ORDERED: LEVOTHYROXINE 25 MCG TABLET PO SCH (06:30)
[2021-11-23 06:44] LABS: Basophils # 0.1 10*3/uL (0.0-0.2); Eosinophils # 0.1 10*3/uL (0.0-0.87); Eosinophils % 1.8 % (0.00-10.9); Hematocrit 42.5 VOL% (35.7-47.0); Hemoglobin 13.8 GM/DL (12.0-16.0); Immature Granulocytes % 0.3 %; Immature Granulocytes Absolute 0.02 #; Lymphocytes # 2.8 10*3/uL (1.4-4.0); Mean Corpuscular HGB Conc 32.5 GM/DL (32-36); Mean Corpuscular Volume 91.4 FL (87-102); Mean Platelet Volume 9.8 FL (9.6-12.0); Monocytes % 7.1 % (1.7-12.7); Neutrophils % 50.8 % (38.7-73.9); Platelet Count 262 T/CUMM (130-400); Red Blood Count 4.65 MC/CUMM (3.8-5.5); Red Cell Distribution Width 13.8 % (9.3-17.3); White Blood Count 7.2 T/CUMM (4-12)
[2021-11-23 07:14] LABS: Albumin 2.9 G/DL (3.4-5.0); Bilirubin,Total 0.8 MG/DL (0.20-1.00); Calcium 8.5 MG/DL (8.5-10.1); Osmolality,Calculated 281.5 MOS/KG (273-304); Potassium 3.6 MMOL/L (3.5-5.1); Risk Ratio 4.11; VLDL Cholesterol 19.4 MG/DL
[2021-11-23] MEDS: carvediloL 6.25 MG TABLET PO SCH ×2 (08:45→16:34)
[2021-11-23] MEDS ORDERED: LOSARTAN 25 MG TABLET PO SCH (09:00)
[2021-11-23] MEDS ORDERED: PANTOPRAZOLE 40 MG VIAL IV SCH (09:00)
[2021-11-23] MEDS ORDERED: ASPIRIN EC 81 MG TABLET PO SCH (09:00)
[2021-11-23] MEDS ORDERED: DONEPEZIL 10 MG TABLET PO SCH (09:00)
[2021-11-23] MEDS ORDERED: MEGESTROL 40 MG TABLET PO SCH (09:00)
[2021-11-23] MEDS ORDERED: CHOLECALCIFEROL 1,000 UNIT TABLET PO SCH (09:00)
[2021-11-23] MEDS ORDERED: CYPROHEPTADINE 4 MG TABLET PO SCH (09:00)
[2021-11-23] MEDS: MEGESTROL 40 MG TABLET PO SCH ×2 (09:45→16:34)
[2021-11-23 16:02] VITALS: BP 137/50
[2021-11-23] MEDS ORDERED: MIRTAZAPINE 15 MG TABLET PO SCH (21:00)
== END 2021-11-23 18:08 | disposition home health service (06) ==
LOC: EDBD → EDUNIT# → N.3E 17:25 → N.ED 17:25 → SUATTDRO 20:52 → N.3E 22:11
PROVIDERS: ADMIT Internal Medicine; ATTEND Internal Medicine

== ENCOUNTER 2022-06-04 15:19 | Observation (INO) ==
[2022-06-04] MEDS ORDERED: SODIUM CHLORIDE 0.9% 1,000 ML IV STA (19:00)
[2022-06-04] MEDS ORDERED: ONDANSETRON 4 MG/2 ML VIAL IV STA (19:00)
[2022-06-04 19:52] LABS: Basophils # 0.1 10*3/uL (0.0-0.2); Basophils % 0.6 % (0.0-0.8); Eosinophils # 0.2 10*3/uL (0.0-0.87); Eosinophils % 2.4 % (0.00-10.9); Hematocrit 47.8 VOL% (35.7-47.0); Hemoglobin 15.4 GM/DL (12.0-16.0); Immature Granulocytes % 0.5 %; Immature Granulocytes Absolute 0.04 #; Lymphocytes # 2.7 10*3/uL (1.4-4.0); Lymphocytes % 34.1 % (21.3-54.2); Mean Corpuscular HGB Conc 32.2 GM/DL (32-36); Mean Corpuscular Volume 91.9 FL (87-102); Mean Platelet Volume 9.6 FL (9.6-12.0); Monocytes # 0.5 10*3/uL (0.11-0.8); Monocytes % 6.5 % (1.7-12.7); Neutrophils % 55.9 % (38.7-73.9); Platelet Count 205 T/CUMM (130-400); Red Cell Distribution Width 14.2 % (9.3-17.3); White Blood Count 7.9 T/CUMM (4-12)
[2022-06-04 19:53] LABS: RBC,Urine 2 /HPF (0-4); Squamous Epithelial Cell,Urine Occasional /HPF (0-10)
[2022-06-04 19:54] LABS: Bilirubin,Urine Negative (Negative); Blood, Urine Trace mg/dL (Negative); Glucose,Urine (UA) Negative (Negative); Ketones,Urine Negative (Negative); Nitrite,Urine Negative (Negative); Protein,Urine Negative (Negative); Urine Appearance Clear (Clear); Urine Color Yellow (Yellow); Urine Specific Gravity 1.015 (1.001-1.035); Urine Urobilinogen 0.2 eU/dL (<2.0); Urine pH 6.5 (4.5-8.0)
[2022-06-04] MEDS ORDERED: cefTRIAXone 1,000 MG in SODIUM CHLORIDE 0.9% 100 ML IV STA (20:17)
[2022-06-04 20:18] LABS: Albumin 3.7 G/DL (3.4-5.0); Bilirubin,Total 0.5 MG/DL (0.20-1.00); Calcium 9.2 MG/DL (8.5-10.1); Osmolality,Calculated 278.3 MOS/KG (273-304); Potassium 3.6 MMOL/L (3.5-5.1); Thyroid Stimulating Hormone 7.52 uIU/ml (0.358-3.74); Total Protein 7.3 G/DL (6.4-8.2)
[2022-06-04] MEDS ORDERED: LEVOFLOXACIN INJ 750 MG/150 ML PREMIX IV STA (20:36)
[2022-06-04] MEDS ORDERED: hydrALAZINE 20 MG/1 ML VIAL IV PRN (20:50)
[2022-06-04] MEDS ORDERED: ACETAMINOPHEN 325 MG TABLET PO PRN (20:50)
[2022-06-04] MEDS ORDERED: GLUCAGON 1 MG VIAL IM PRN (20:50)
[2022-06-04] MEDS ORDERED: DEXTROSE 10% 250 ML BAG IV PRN (20:50)
[2022-06-04] MEDS ORDERED: ONDANSETRON 4 MG/2 ML VIAL IV PRN (20:50)
[2022-06-04] MEDS ORDERED: ENOXAPARIN 30 MG/0.3 ML SYRINGE SUBCUT SCH (21:00)
[2022-06-04 22:17] LABS: Arterial Base Excess iSTAT -2 MMOL/L (-2.5-2.5); Arterial Bicarbonate iSTAT 24.3 MMOL/L (20-26); Arterial O2 Saturation iSTAT 95 % (95-100); Arterial PCO2 iSTAT 46 MM HG (35-48); Arterial PO2 iSTAT 84 MM HG (80-95); Arterial Total CO2 iSTAT 26 MMO/L (23-27); Arterial pH iSTAT 7.331 (7.35-7.45)
[2022-06-04] MEDS: DOCUSATE SODIUM 100 MG CAPSULE PO SCH (22:26)
[2022-06-04] MEDS ORDERED: GABAPENTIN 300 MG CAPSULE PO PRN (23:24)
[2022-06-04] MEDS ORDERED: PROMETHAZINE 25 MG TABLET PO PRN (23:24)
[2022-06-04] MEDS ORDERED: DIPHENOXYLATE/ATROPINE 2.5-0.025 MG TABLET PO PRN (23:24)
[2022-06-04] MEDS ORDERED: POLYETHYLENE GLYCOL POWDER 17 GM PACK PO PRN (23:35)
[2022-06-05] MEDS: LEVOTHYROXINE 25 MCG TABLET PO SCH (05:25)
[2022-06-05 05:31] LABS: Basophils % 0.3 % (0.0-0.8); Eosinophils # 0.1 10*3/uL (0.0-0.87); Hematocrit 42.7 VOL% (35.7-47.0); Hemoglobin 13.5 GM/DL (12.0-16.0); Immature Granulocytes % 0.3 %; Immature Granulocytes Absolute 0.02 #; Lymphocytes # 1.1 10*3/uL (1.4-4.0); Lymphocytes % 18.3 % (21.3-54.2); Mean Corpuscular HGB Conc 31.6 GM/DL (32-36); Mean Corpuscular Volume 93.6 FL (87-102); Mean Platelet Volume 9.6 FL (9.6-12.0); Monocytes # 0.5 10*3/uL (0.11-0.8); Monocytes % 8.9 % (1.7-12.7); Neutrophils % 70.2 % (38.7-73.9); Platelet Count 183 T/CUMM (130-400); Red Blood Count 4.56 MC/CUMM (3.8-5.5); Red Cell Distribution Width 14.2 % (9.3-17.3); White Blood Count 5.9 T/CUMM (4-12)
[2022-06-05 05:48] LABS: Calcium 9.1 MG/DL (8.5-10.1); Osmolality,Calculated 280.1 MOS/KG (273-304); Potassium 4.1 MMOL/L (3.5-5.1)
[2022-06-05] MEDS: MAGNESIUM OXIDE 400 MG TABLET PO SCH (09:00)
[2022-06-05] MEDS: ASPIRIN EC 81 MG TABLET PO SCH (09:00)
[2022-06-05] MEDS ORDERED: NON-FORMULARY MEDICATION (Pumpkin Seed Extract-Soy Germ [Azo Bladder Control] 300 mg Capsu PO SCH (09:00)
[2022-06-05] MEDS: DONEPEZIL 10 MG TABLET PO SCH (09:00)
[2022-06-05] MEDS: MULTIVITAMIN (CENTRUM) TABLET PO SCH (09:00)
[2022-06-05] MEDS: CHOLECALCIFEROL 5,000 UNIT TABLET PO SCH (09:00)
[2022-06-05] MEDS: MAGNESIUM CHLORIDE 64 MG TABLET PO SCH (09:00)
[2022-06-05] MEDS: MIRTAZAPINE 15 MG TABLET PO SCH (09:00)
[2022-06-05] MEDS: PANTOPRAZOLE 40 MG TABLET PO SCH (09:01)
[2022-06-05] MEDS: DOCUSATE SODIUM 100 MG CAPSULE PO SCH ×2 (09:01→20:48)
[2022-06-05] MEDS: LOSARTAN 25 MG TABLET PO SCH ×2 (09:01→09:15)
[2022-06-05] MEDS: carvediloL 6.25 MG TABLET PO SCH ×3 (09:05→16:09)
[2022-06-05] MEDS: MEGESTROL 40 MG TABLET PO SCH ×3 (09:05→20:48)
[2022-06-05] MEDS ORDERED: cefTRIAXone 1,000 MG in SODIUM CHLORIDE 0.9% 100 ML IV SCH (21:00)
[2022-06-05] MEDS ORDERED: ENOXAPARIN 40 MG/0.4 ML SYRINGE SUBCUT SCH (21:00)
[2022-06-05] MEDS ORDERED: ATORVASTATIN 40 MG TABLET PO SCH (21:00)
[2022-06-06 05:55] LABS: Basophils % 0.3 % (0.0-0.8); Eosinophils # 0.4 10*3/uL (0.0-0.87); Eosinophils % 5.4 % (0.00-10.9); Hematocrit 39.8 VOL% (35.7-47.0); Hemoglobin 13.2 GM/DL (12.0-16.0); Immature Granulocytes % 0.3 %; Immature Granulocytes Absolute 0.02 #; Lymphocytes # 1.1 10*3/uL (1.4-4.0); Lymphocytes % 15.7 % (21.3-54.2); Mean Corpuscular HGB Conc 33.2 GM/DL (32-36); Mean Corpuscular Volume 91.9 FL (87-102); Mean Platelet Volume 10.2 FL (9.6-12.0); Monocytes # 0.6 10*3/uL (0.11-0.8); Monocytes % 8.6 % (1.7-12.7); Neutrophils % 69.7 % (38.7-73.9); Platelet Count 173 T/CUMM (130-400); Red Blood Count 4.33 MC/CUMM (3.8-5.5); Red Cell Distribution Width 14.1 % (9.3-17.3); White Blood Count 6.9 T/CUMM (4-12)
[2022-06-06 06:12] LABS: Albumin 2.7 G/DL (3.4-5.0); Bilirubin,Total 0.5 MG/DL (0.20-1.00); Osmolality,Calculated 278.5 MOS/KG (273-304); Potassium 4.1 MMOL/L (3.5-5.1); Total Protein 6.1 G/DL (6.4-8.2)
[2022-06-06] MEDS: LEVOTHYROXINE 25 MCG TABLET PO SCH (06:12)
[2022-06-06] MEDS: carvediloL 6.25 MG TABLET PO SCH (08:47)
[2022-06-06] MEDS: CHOLECALCIFEROL 5,000 UNIT TABLET PO SCH (08:48)
[2022-06-06] MEDS: MIRTAZAPINE 15 MG TABLET PO SCH (08:48)
[2022-06-06] MEDS: MAGNESIUM CHLORIDE 64 MG TABLET PO SCH (08:48)
[2022-06-06] MEDS: ASPIRIN EC 81 MG TABLET PO SCH (08:48)
[2022-06-06] MEDS: MULTIVITAMIN (CENTRUM) TABLET PO SCH (08:48)
[2022-06-06] MEDS: MEGESTROL 40 MG TABLET PO SCH (08:48)
[2022-06-06] MEDS: MAGNESIUM OXIDE 400 MG TABLET PO SCH (08:49)
[2022-06-06] MEDS: PANTOPRAZOLE 40 MG TABLET PO SCH (08:49)
[2022-06-06] MEDS: DONEPEZIL 10 MG TABLET PO SCH (08:49)
[2022-06-06] MEDS: LOSARTAN 25 MG TABLET PO SCH ×2 (08:49→08:57)
[2022-06-06] MEDS: DOCUSATE SODIUM 100 MG CAPSULE PO SCH (08:49)
[2022-06-06] MEDS ORDERED: cefTRIAXone 1,000 MG in SODIUM CHLORIDE 0.9% 100 ML IV ONE (10:15)
[2022-06-06 11:21] VITALS: BP 125/54
== END 2022-06-06 14:52 | disposition home health service (06) ==
LOC: EDUNIT# 15:19 → N.ED 15:19 → N.EDINP 15:19 → N.5E 22:16
PROVIDERS: ADMIT Family Medicine; ATTEND Family Medicine